=== PATIENT | male | born 1960 | race African-American/Black ===

== ENCOUNTER 2017-07-04 06:35 | Inpatient (IN) | payer OTHER ==
[~2017-07-04] VITALS: Ht 160 cm; Wt 91.2 kg
[2017-07-04] VITALS (7 sets, daily range): BP systolic 116–169; BP diastolic 62–96
--- NOTE | 2017-07-04 06:46 | Emergency Room Report ---
History of Present Illness General Chief Complaint: Chest Pain Source: Patient, EMS Present Illness HPI 56-year-old male with pmhx of HTN, CHF, end-stage renal disease on dialysis Friday last dialysis Friday p/w chest pain for one day. Chest pain started while at rest while trying to sleep. Localized to right chest , no radiation to back or other areas, sharp in nature, gradual in onset, lasted many hours throughout the entire night,. Reports SOB. Denies palpitations, diaphoresis, n/v. This is the first occurrence of chest pain. Denies fever, chills, cough, abd pain. Denies trauma. Patient has never had a stress test. Patient has never had a cardiac catheterization. Denies smoking, no family history of cardiac disease at a young age. Patient states that he has chronic bilateral lower extremity edema, and recently it has been better than his usual. Allergies: Coded Allergies: No Known Allergies (Unverified , 07/04/17) Patient History Past Medical History: see triage record Past Surgical History: none Pertinent Family History: none Reviewed Nursing Documentation: PMH: Agreed, PSxH: Agreed Nursing Documentation-PMH Hx Hypertension: Yes - CHF Hx Dialysis: Yes - MWF Review of Systems All Other Systems: negative except mentioned in HPI Physical Exam Vital Signs Date Time Temp Pulse Resp B/P (MAP) Pulse Ox O2 Delivery O2 Flow Rate FiO2 07/04/17 06:26 97.3 85 18 147/88 96 Room Air Sp02 EP Interpretation: normal, abnormal - Satting 91% on room air up to 99% on 2 L nasal cannula General Appearance: alert, GCS 15, non-toxic, other - Appears slightly short of breath however speaking in complete sentences Head: normocephalic, atraumatic Eyes: bilateral eye normal inspection, bilateral eye PERRL, bilateral eye EOMI ENT: normal ENT inspection, normal pharynx, normal voice, moist mucus membranes Neck: normal inspection, full range of motion, supple Respiratory: no retraction, no wheezing, speaking full sentences, other - Decreased breath sounds bilateral lung bases, chest symmetrical Cardiovascular #1: regular rate, rhythm, normal capillary refill, other - Right chest with dialysis Port-A-Cath, edema Cardiovascular #2: 2+ radial (R), 2+ radial (L) Gastrointestinal: normal inspection, non tender, soft, non-distended, no guarding Genitourinary: no CVA tenderness Musculoskeletal: normal inspection, back normal, normal range of motion, non- tender Neurologic: normal inspection, alert, oriented x3, responsive, motor strength/ tone normal, sensory intact, normal gait, speech normal Psychiatric: normal inspection, judgement/insight normal, memory normal Skin: normal inspection, normal color, no rash, warm/dry, well hydrated, normal turgor Medical Decision Making Diagnostic Impression: Primary Impression: Acute coronary syndrome Additional Impressions: CHF exacerbation ESRD (end stage renal disease) Hypoxia ER Course 56-year-old male with end-stage renal disease hypertension presenting with chest pain since last night DDX: ACS vs. CHF exacerbation vs. pneumonia vs. gastritis/GERD vs. pneumothorax PE on differential however at this time there are other more likely diagnoses. Plan: IV access, obtain labs including troponin, EKG, CXR ASA already given by EMS 325 mg, pain control with nitro / morphine as needed Anticipate admission Consider diuresis ER course: Patient hypoxic on room air 90 given 2 L nasal cannula Patient has remained on a monitor, HD stable Disposition: Patient requires admission for chest pain/ chf exacberation, [facility] Due to patient's history and comorbidities, patient has increased risk of acute cardiac event. Patient requires admission for further workup, serial troponin, and possible stress test/cath inpatient. D/W hospitalist Patient was signed out to Dr Patel, who has accepted patient for admission. Dr Elizondo contacted from renal who is aware of patient and will dialyze once patient is upstairs. Please note that this Emergency Department Report was dictated using [employer] supervisor technology software, occasionally this can lead to erroneous entry secondary to interpretation by the dictation equipment. EKG Diagnostic Results EP Interpretation: Yes Rate: normal Rhythm: NSR ST Segments: Mildly peaked T waves, Q waves noted in aVL, T wave inversion in aVL ASA given to patient: Yes Rhythm Strip EP Interpretation: Yes Rate: 70 Rhythm: NSR, no PVCs, no ectopy Chest X-ray CXR: Ordered: Yes 1 view Indication: Chest pain EP interpretation: Yes Interpretation: pulm vasc congestion/fluid overload Impression: pulm vasc congestion / CHF Electronically signed by Pedro Pablo Vergara MD Laboratory Tests Test 07/04/17 06:40 White Blood Count 16.5 K/UL (4.8-10.8) H Red Blood Count 3.37 M/UL (4.70-6.10) L Hemoglobin 10.1 G/DL (14.2-18.0) L Hematocrit 31.5 % (42.0-52.0) L Mean Corpuscular Volume 94 FL (80-99) Mean Corpuscular Hemoglobin 30.0 PG (27.0-31.0) Mean Corpuscular Hemoglobin Concent 32.0 G/DL (32.0-36.0) Red Cell Distribution Width 14.6 % (11.6-14.8) Platelet Count 291 K/UL (150-450) Mean Platelet Volume 5.2 FL (6.5-10.1) L Neutrophils (%) (Auto) 83.2 % (45.0-75.0) H Lymphocytes (%) (Auto) 9.1 % (20.0-45.0) L Monocytes (%) (Auto) 5.9 % (1.0-10.0) Eosinophils (%) (Auto) 1.2 % (0.0-3.0) Basophils (%) (Auto) 0.7 % (0.0-2.0) Sodium Level 138 MMOL/L (136-145) Potassium Level 4.5 MMOL/L (3.5-5.1) Chloride Level 101 MMOL/L (98-107) Carbon Dioxide Level 26 MMOL/L (21-32) Anion Gap 11 mmol/L (5-15) Blood Urea Nitrogen 71 mg/dL (7-18) H Creatinine 6.5 MG/DL (0.55-1.30) H Estimate Glomerular Filtration Rate 10.8 mL/min (>60) Glucose Level 111 MG/DL (74-106) H Calcium Level 9.4 MG/DL (8.5-10.1) Total Bilirubin 0.5 MG/DL (0.2-1.0) Aspartate Amino Transferase (AST) 15 U/L (15-37) Alanine Aminotransferase (ALT) 20 U/L (12-78) Alkaline Phosphatase 86 U/L (46-116) Total Creatine Kinase 81 U/L (26-308) Creatine Kinase MB 0.8 NG/ML (0.0-3.6) Creatine Kinase MB Relative Index 0.9 Troponin I 0.593 ng/mL (0.000-0.056) Pro-B-Type Natriuretic Peptide 1451 pg/mL (0-125) H Total Protein 7.5 G/DL (6.4-8.2) Albumin 3.5 G/DL (3.4-5.0) Globulin 4.0 g/dL Albumin/Globulin Ratio 0.9 (1.0-2.7) L Last Vital Signs Date Time Temp Pulse Resp B/P (MAP) Pulse Ox O2 Delivery O2 Flow Rate FiO2 07/04/17 06:26 97.3 85 18 147/88 96 Room Air Disposition: ADMITTED INPATIENT Condition: Serious Pedro Pablo Vergara M.D. Jul 04, 2017 06:46
[2017-07-04 06:57] LABS: BASOPHILS % (AUTO) 0.7 % (0.0-2.0); EOSINOPHILS % (AUTO) 1.2 % (0.0-3.0); LYMPHOCYTES % (AUTO) 9.1 % (20.0-45.0); MEAN CORPUSCULAR VOLUME 94 FL (80-99); MEAN PLATELET VOLUME 5.2 FL (6.5-10.1); MONOCYTES % (AUTO) 5.9 % (1.0-10.0); NEUTROPHILS % (AUTO) 83.2 % (45.0-75.0); PLATELET COUNT 291 K/UL (150-450); RED BLOOD COUNT 3.37 M/UL (4.70-6.10); RED CELL DISTRIBUTION WIDTH 14.6 % (11.6-14.8); WHITE BLOOD COUNT 16.5 K/UL (4.8-10.8)
[2017-07-04 07:24] LABS: ALANINE AMINOTRANSFERASE 20 U/L (12-78); ALBUMIN/GLOBULIN RATIO 0.9 (1.0-2.7); ANION GAP 11 mmol/L (5-15); ASPARTATE AMINO TRANSFERASE 15 U/L (15-37); CALCIUM 9.4 MG/DL (8.5-10.1); CARBON DIOXIDE 26 MMOL/L (21-32); CHLORIDE 101 MMOL/L (98-107); CKMB 0.8 NG/ML (0.0-3.6); CREATININE 6.5 MG/DL (0.55-1.30); GLOMERULAR FILTRATION RATE 10.8 mL/min (>60); POTASSIUM 4.5 MMOL/L (3.5-5.1); SODIUM 138 MMOL/L (136-145); TOTAL PROTEIN 7.5 G/DL (6.4-8.2)
[2017-07-04] MEDS ORDERED: Nitroglycerin Subl 0.4mg tab SL PRN (07:30)
[2017-07-04] MEDS ORDERED: CLONIDINE HCL0.1 MG PO (08:02)
[2017-07-04] MEDS ORDERED: CARVEDILOL6.25 MG ORAL (08:02)
[2017-07-04] MEDS ORDERED: FUROSEMIDE40 MG ORAL (08:02)
[2017-07-04] MEDS ORDERED: CALCIUM ACETAT668 MG PO (08:02)
[2017-07-04] MEDS ORDERED: AMLODIPINE BESYL5 MG ORAL (08:02)
[2017-07-04] MEDS ORDERED: LISINOPRIL40 MG ORAL (08:02)
[2017-07-04] MEDS ORDERED: FERROUS SULFAT325 MG ORAL (08:02)
[2017-07-04 08:21] LABS: APPEARANCE,URINE CLEAR; KETONES,URINE NEGATIVE (NEGATIVE); LEUKOCYTE ESTERASE ,URINE NEGATIVE (NEGATIVE); NITRITE,URINE NEGATIVE (NEGATIVE); PH,URINE 6 (4.5-8.0); PROTEIN,URINE 4+ (NEGATIVE); UROBILINOGEN,URINE NORMAL MG/DL (0.0-1.0)
[2017-07-04 08:31] LABS: BACTERIA,URINE FEW /HPF; SQUAMOUS EPITHELIAL CELL,UR OCCASIONAL /LPF (NONE/OCC); WBC,URINE 0-2 /HPF (0 - 0)
[2017-07-04] MEDS ORDERED: Albuterol/Ipratropium 3ml neb HHN PRN (10:15)
[2017-07-04] MEDS ORDERED: Miralax 17gm pkt ORAL PRN (10:15)
--- NOTE | 2017-07-04 11:10 | History and Physical ---
History of Present Illness General Date patient seen: Jul 04, 2017 Reason for Hospitalization: Chest Pain Present Illness HPI 56-year-old male with pmhx of HTN, CHF, end-stage renal disease on dialysis brought in by paramedics with CC of chest pain for one day. Chest pain started while at rest while trying to sleep. Localized to right chest, no radiation to back or other areas, sharp in nature, gradual in onset, lasted many hours throughout the entire night,. Reports SOB. Denies palpitations, diaphoresis, n/ v. Denies fever, chills, cough, abd pain. Denies trauma. Initial evaluation showed that pt has pulmonary edema and leukocytosis. Pt is admitted to [facility] for further work up. HD is already arranged. Allergies: Coded Allergies: No Known Allergies (Unverified , 07/04/17) Medication History Scheduled Amlodipine Besylate* (Amlodipine Besylate*), 5 MG ORAL DAILY, (Reported) Carvedilol* (Carvedilol*), 6.25 MG ORAL EVERY 12 HOURS, (Reported) Ferrous Sulfate* (Ferrous Sulfate*), 325 MG ORAL DAILY, (Reported) Furosemide* (Lasix*), 40 MG ORAL DAILY, (Reported) Lisinopril* (Lisinopril*), 40 MG ORAL DAILY, (Reported) Miscellaneous Medications Calcium Acetate (Calcium Acetate), 668 MG PO, (Reported) Clonidine Hcl (Clonidine Hcl), 0.1 MG PO, (Reported) Patient History Healthcare decision maker Resuscitation status Advanced Directive on File Past Medical/Surgical History Past Medical/Surgical History: (1) ESRD (end stage renal disease) Review of Systems All Other Systems: negative except mentioned in HPI Physical Exam General Appearance: WD/WN Lines, tubes and drains: peripheral HEENT: normocephalic, anicteric Neck: non-tender, normal alignment Respiratory/Chest: chest wall non-tender, lungs clear Breasts: no masses Cardiovascular/Chest: normal peripheral pulses, regular rhythm Abdomen: normal bowel sounds Genitourinary/Rectal: normal genital exam Extremities: no calf tenderness Last 24 Hour Vital Signs Date Time Temp Pulse Resp B/P (MAP) Pulse Ox O2 Delivery O2 Flow Rate FiO2 07/04/17 10:25 99.2 74 20 158/90 99 Nasal Cannula 2.0 07/04/17 10:00 67 18 143/70 100 Room Air 2.0 07/04/17 08:47 75 20 116/62 100 Nasal Cannula 2.0 07/04/17 07:41 158/74 07/04/17 06:44 97.3 70 18 147/88 100 Nasal Cannula 2.0 07/04/17 06:44 85 18 Nasal Cannula 2.0 07/04/17 06:26 97.3 85 18 147/88 96 Room Air Laboratory Tests Test 07/04/17 06:40 07/04/17 08:05 White Blood Count 16.5 K/UL (4.8-10.8) H Red Blood Count 3.37 M/UL (4.70-6.10) L Hemoglobin 10.1 G/DL (14.2-18.0) L Hematocrit 31.5 % (42.0-52.0) L Mean Corpuscular Volume 94 FL (80-99) Mean Corpuscular Hemoglobin 30.0 PG (27.0-31.0) Mean Corpuscular Hemoglobin Concent 32.0 G/DL (32.0-36.0) Red Cell Distribution Width 14.6 % (11.6-14.8) Platelet Count 291 K/UL (150-450) Mean Platelet Volume 5.2 FL (6.5-10.1) L Neutrophils (%) (Auto) 83.2 % (45.0-75.0) H Lymphocytes (%) (Auto) 9.1 % (20.0-45.0) L Monocytes (%) (Auto) 5.9 % (1.0-10.0) Eosinophils (%) (Auto) 1.2 % (0.0-3.0) Basophils (%) (Auto) 0.7 % (0.0-2.0) Sodium Level 138 MMOL/L (136-145) Potassium Level 4.5 MMOL/L (3.5-5.1) Chloride Level 101 MMOL/L (98-107) Carbon Dioxide Level 26 MMOL/L (21-32) Anion Gap 11 mmol/L (5-15) Blood Urea Nitrogen 71 mg/dL (7-18) H Creatinine 6.5 MG/DL (0.55-1.30) H Estimat Glomerular Filtration Rate 10.8 mL/min (>60) Glucose Level 111 MG/DL (74-106) H Calcium Level 9.4 MG/DL (8.5-10.1) Total Bilirubin 0.5 MG/DL (0.2-1.0) Aspartate Amino Transf (AST/SGOT) 15 U/L (15-37) Alanine Aminotransferase (ALT/SGPT) 20 U/L (12-78) Alkaline Phosphatase 86 U/L (46-116) Total Creatine Kinase 81 U/L (26-308) Creatine Kinase MB 0.8 NG/ML (0.0-3.6) Creatine Kinase MB Relative Index 0.9 Troponin I 0.593 ng/mL (0.000-0.056) Pro-B-Type Natriuretic Peptide 1451 pg/mL (0-125) H Total Protein 7.5 G/DL (6.4-8.2) Albumin 3.5 G/DL (3.4-5.0) Globulin 4.0 g/dL Albumin/Globulin Ratio 0.9 (1.0-2.7) L Urine Color Pale yellow Urine Appearance Clear Urine pH 6 (4.5-8.0) Urine Specific [place] 1.015 (1.005-1.035) Urine Protein 4+ (NEGATIVE) H Urine Glucose (UA) Negative (NEGATIVE) Urine Ketones Negative (NEGATIVE) Urine Occult Blood 1+ (NEGATIVE) H Urine Nitrite Negative (NEGATIVE) Urine Bilirubin Negative (NEGATIVE) Urine Urobilinogen Normal MG/DL (0.0-1.0) Urine Leukocyte Esterase Negative (NEGATIVE) Urine RBC 2-4 /HPF (0 - 0) H Urine WBC 0-2 /HPF (0 - 0) Urine Squamous Epithelial Cells Occasional /LPF Urine Bacteria Few /HPF (NONE) Height (Feet): 5 Height (Inches): 3.00 Weight (Pounds): 160 Medications Current Medications Medications (Trade) Dose Ordered Sig/Meagan Route PRN Reason Start Time Stop Time Status Last Admin Dose Admin Acetaminophen (Tylenol) 650 mg Q4H PRN ORAL Fever 07/04/17 10:15 08/03/17 10:14 UNV Albuterol/ Ipratropium (DuoNeb 0.5-3(2.5)mg/3ml) 3 ml EVERY 4 HOURS PRN HHN Shortness of Breath 07/04/17 10:15 07/09/17 10:14 UNV Amlodipine Besylate (Norvasc) 5 mg DAILY ORAL 07/05/17 09:00 08/04/17 08:59 UNV Carvedilol (Coreg) 6.25 mg EVERY 12 HOURS ORAL 07/04/17 21:00 08/03/17 20:59 UNV Clonidine HCl (Catapres) 0.1 mg EVERY 6 HOURS PRN ORAL sbp more than 160 07/04/17 10:15 08/03/17 10:14 UNV Dextrose (Dextrose 50%) STAT PRN IV Hypoglycemia 07/04/17 10:15 08/03/17 10:14 UNV Heparin Sodium (Porcine) (Heparin 5000 units/ml) 5,000 units EVERY 12 HOURS SUBQ 07/04/17 21:00 08/03/17 20:59 UNV Lisinopril (Prinivil) 40 mg DAILY ORAL 07/05/17 09:00 08/04/17 08:59 UNV Nitroglycerin (Ntg) 0.4 mg Q5M PRN SL Prn Chest Pain 07/04/17 07:30 08/03/17 07:29 07/04/17 07:41 Ondansetron HCl (Zofran) 4 mg Q6H PRN IVP Nausea & Vomiting 07/04/17 10:15 08/03/17 10:14 UNV Ondansetron HCl (Zofran) 4 mg Q6H PRN IVP Nausea & Vomiting 07/04/17 10:15 08/03/17 10:14 UNV Pneumococcal Polyvalent Vaccine (Pneumovax) 0.5 ml ONCE ONCE IM 07/04/17 11:00 07/04/17 11:01 UNV Polyethylene Glycol (Miralax) 17 gm DAILYPRN PRN ORAL Constipation 07/04/17 10:15 08/03/17 10:14 UNV Temazepam (Restoril) 15 mg HSPRN PRN ORAL Insomnia 07/04/17 10:15 07/11/17 10:14 UNV Assessment/Plan Problem List: (1) Respiratory failure, acute ICD Codes: J96.00 - Acute respiratory failure, unspecified whether with hypoxia or hypercapnia SNOMED: 51459107 (2) Acute coronary syndrome ICD Codes: I24.9 - Acute ischemic heart disease, unspecified SNOMED: 297064194 (3) ESRD (end stage renal disease) ICD Codes: N18.6 - End stage renal disease SNOMED: 97771916, 56983476 (4) Leukocytosis ICD Codes: D72.829 - Elevated white blood cell count, unspecified SNOMED: 764325535, 675654286 Assessment/Plan HD serial ekg cardiac work up blood cultures f/u wbc empiric vanco dvt prophylaxis TO TINSLEY Jul 04, 2017 11:10
--- NOTE | 2017-07-04 11:45 | Diagnostic Imaging Report ---
Indication: PAIN Technique: One view of the chest Comparison: none Findings: There are bilateral pleural effusions, left greater than right. There is retrocardiac consolidation. There is mild generalized interstitial congestion. Right jugular tunneled dialysis catheter is noted. Heart is enlarged. Impression: Bilateral left greater than right pleural effusions. Retrocardiac consolidation, mild generalized interstitial congestion Cardiomegaly Dialysis catheter
[2017-07-04] MEDS: Norco 5mg/325mg tab ORAL PRN ×2 (13:38→20:59)
--- NOTE | 2017-07-04 14:05 | Consultation ---
Consult Note Consult Note [id number] OZZIE CA M.D. Jul 04, 2017 14:05
--- NOTE | 2017-07-04 14:56 | Cardiology Report ---
APPROVED REPORT EXAM: Two-dimensional and M-mode echocardiogram with Doppler and color Doppler. INDICATION Left Ventricular Function M-Mode DIMENSIONS IVSd2.2 (0.7-1.1cm)Left Atrium (MM)3.7 (1.6-4.0cm) LVDd3.6 (3.5-5.6cm)Aortic Root3.0 (2.0-3.7cm) PWd1.1 (0.7-1.1cm)Aortic Cusp Exc.2.0 (1.5-2.0cm) LVDs2.6 (2.5-4.0cm) PWs4.2 cm Normal left ventricular chamber size. Global left ventricular hypokinesis. Left ventricular ejection fraction estimated to be 50 %. Mild left ventricular hypertrophy. Anterior Echo-free space, may be due to pericardial fat or effusion. All other cardiac chamber sizes are within normal limits. Mild focal aortic valve sclerosis with adequate cusp excursion. Mildly thickened mitral valve leaflets with normal excursion. Mild mitral annulus and aortic root calcification. Normal pulmonic valve structure. Normal tricuspid valve structure. IVC dilated at 1.8 cm with physiologic collapse. A color flow and spectral Doppler study was performed and revealed: No aortic regurgitation. Trace mitral regurgitation. reduced left ventricular relaxation. Trace tricuspid regurgitation. Tricuspid systolic velocities suggests peak right ventricular systolic pressure of 18 mmHg. No pulmonic regurgitation present.
[2017-07-04] MEDS ORDERED: Pneumococcal Vaccine 25mcg/0.5ml IM ONE (15:30)
--- NOTE | 2017-07-04 16:30 | Consultation ---
Consult Note Consult Note asked to eval for dialysis management 56-year-old male with pmhx of HTN, CHF, end-stage renal disease on dialysis Friday last dialysis Friday p/w chest pain for one day. Chest pain started while at rest while trying to sleep. Localized to right chest , no radiation to back or other areas, sharp in nature, gradual in onset, lasted many hours throughout the entire night,. Reports SOB. Denies palpitations, diaphoresis, n/v. This is the first occurrence of chest pain. Denies fever, chills, cough, abd pain. Denies trauma. Patient has never had a stress test. Patient has never had a cardiac catheterization. Denies smoking, no family history of cardiac disease at a young age. Patient states that he has chronic bilateral lower extremity edema, and recently it has been better than his usual. Hx Hypertension: Yes - CHF Hx Dialysis: Yes - MWF [facility] poor historian- New with HD has right chest permacath Assessment/Plan Primary Impression: Acute coronary syndrome Additional Impressions: CHF exacerbation ESRD (end stage renal disease) Hypoxia Plan: HD and UF agustín keep BP in check per cardiology FREDDIE GARCIA Jul 04, 2017 16:30
[2017-07-04] MEDS: Carvedilol 6.25mg Tab ORAL SCH (21:00)
[2017-07-04] MEDS: Heparin 5000 units/ml inj SUBQ SCH (21:05)
[2017-07-05] VITALS: BP 112/54
[2017-07-05] MEDS ORDERED: Vancomycin 1250mg/D5W 250ml IVPB ONE (02:00)
--- NOTE | 2017-07-05 02:00 | Consultation ---
DATE OF CONSULTATION: 07/05/2017 INFECTIOUS DISEASES CONSULTATION CONSULTING PHYSICIAN: Richar Prado M.D REQUESTING PHYSICIAN: Mario Patel M.D. REASON FOR CONSULTATION: Evaluation of the patient for sepsis and antibiotic management. HISTORY OF PRESENT ILLNESS: The patient is a 56-year-old male with multiple medical problems, who was admitted to this medical center due to chest pain mostly and also back pain radiation into the chest. The patient was found to have leukocytosis. Infectious Disease consultation has been requested for further evaluation of the patient and antibiotic management. PAST MEDICAL HISTORY: 1. Hypertension. 2. Congestive heart failure. 3. End-stage renal disease, on hemodialysis. 4. Status post PermCath catheter placement recently. MEDICATIONS: The patient is currently off of antibiotics. ALLERGIES: No known drug allergies. SOCIAL HISTORY: The patient lives at home. FAMILY HISTORY: Noncontributory. REVIEW OF SYSTEMS: HEENT: No recent change in vision or hearing. PULMONARY: No cough or shortness of breath. CARDIOVASCULAR: As mentioned above. ABDOMEN: No nausea or vomiting. GENITOURINARY: No dysuria. The patient has some urine output. NEUROLOGIC: No altered level of consciousness. PHYSICAL EXAMINATION: VITAL SIGNS: Pulse 86, respiratory rate 18, and temperature 99.3. HEENT: No pale conjunctivae. No icterus. NECK: No lymphadenopathy. CHEST: Clear. HEART: S1 and S2. ABDOMEN: Soft. SKIN: No rash. NEUROLOGIC: Awake and alert. LABORATORY AND DIAGNOSTIC DATA: White blood cells 19, hemoglobin 10, and platelets 291. UA shows 2 to 4 red blood cells and 0 white blood cells. BUN 71 and creatinine 6.5. ALT, AST, and alkaline phosphatase are unremarkable. Chest x-ray, bilateral effusion, possible retrocardiac consolidation. 2D echo, no evidence of vegetation. Ejection fraction is 50%. ASSESSMENT: 1. Leukocytosis. 2. Rule out bacteremia. 3. Possible pneumonia. 4. Pleural effusion/pleuritis, maybe cause of patient's chest pain. PLAN: 1. We will start the patient on Levaquin and IV vancomycin. 2. Monitor CBC. 3. Monitor BMP. 4. Monitor cultures (blood, sputum, and urine). 5. Monitor chest x-ray. 6. Monitor the patient's CBC and BMP. 7. Based on patient's clinical course and labs, we will do further recommendation. Thank you, Dr. Patel, for allowing me to participate in the care of this patient. I will follow the patient with you during this hospitalization. Richar Prado M.D. DR: YEFRI JOB#: [id number] CC:
[2017-07-05] MEDS: Norco 5mg/325mg tab ORAL PRN ×3 (02:59→20:27)
[2017-07-05 05:36] LABS: BASOPHILS % (AUTO) 0.5 % (0.0-2.0); EOSINOPHILS % (AUTO) 2.3 % (0.0-3.0); LYMPHOCYTES % (AUTO) 8.5 % (20.0-45.0); MEAN CORPUSCULAR HEMOGLOBIN 30.2 PG (27.0-31.0); MEAN CORPUSCULAR HGB CONC 31.9 G/DL (32.0-36.0); MEAN CORPUSCULAR VOLUME 95 FL (80-99); MEAN PLATELET VOLUME 6.1 FL (6.5-10.1); MONOCYTES % (AUTO) 8.2 % (1.0-10.0); NEUTROPHILS % (AUTO) 80.5 % (45.0-75.0); PLATELET COUNT 304 K/UL (150-450); RED BLOOD COUNT 3.53 M/UL (4.70-6.10); RED CELL DISTRIBUTION WIDTH 14.6 % (11.6-14.8); WHITE BLOOD COUNT 13.9 K/UL (4.8-10.8)
[2017-07-05 05:54] LABS: ALANINE AMINOTRANSFERASE 19 U/L (12-78); ALBUMIN/GLOBULIN RATIO 0.7 (1.0-2.7); ANION GAP 7 mmol/L (5-15); ASPARTATE AMINO TRANSFERASE 14 U/L (15-37); CALCIUM 9.3 MG/DL (8.5-10.1); CARBON DIOXIDE 34 MMOL/L (21-32); CHLORIDE 96 MMOL/L (98-107); CHOLESTEROL 116 MG/DL (< 200); CHOLESTEROL/HDL RATIO 1.6 (3.3-4.4); CREATININE 5.3 MG/DL (0.55-1.30); GLOMERULAR FILTRATION RATE 13.7 mL/min (>60); PHOSPHORUS 4.4 MG/DL (2.5-4.9); POTASSIUM 3.9 MMOL/L (3.5-5.1); SODIUM 137 MMOL/L (136-145); THYROID STIMULATING HORMONE 0.882 uiU/mL (0.360-3.740); TOTAL PROTEIN 7.7 G/DL (6.4-8.2); URIC ACID 4.2 MG/DL (2.6-7.2)
[2017-07-05 06:43] LABS: HEMOGLOBIN A1C 6.7 % (4.3-6.0)
[2017-07-05 08:00] VITALS: BP 133/69
[2017-07-05] MEDS: Lisinopril 20mg tab ORAL SCH (08:39)
[2017-07-05] MEDS: Carvedilol 6.25mg Tab ORAL SCH ×2 (08:40→20:24)
[2017-07-05] MEDS: Heparin 5000 units/ml inj SUBQ SCH ×2 (08:43→20:29)
[2017-07-05] MEDS ORDERED: Tubing IV Secondary IV ONE (09:31)
[2017-07-05] MEDS ORDERED: NS 275ml ONE (09:31)
[2017-07-05 09:50] LABS: CRP QUANT > 70.0 mg/dL (0.00-0.90)
--- NOTE | 2017-07-05 10:12 | Infectious Diseases Prog Note ---
Assessment/Plan Assessment/Plan A; Pneumonia Pleural effusion Leukocytosis ACS ESRD on HD Diastolic CHF P: Continue Levaquin & Vancomycin Subjective ROS Limited/Unobtainable: No Constitutional: Reports: fatigue Respiratory: Reports: productive cough Cardiovascular: Reports: no symptoms Gastrointestinal/Abdominal: Reports: no symptoms Musculoskeletal: Reports: other - soareness Allergies: Coded Allergies: No Known Allergies (Unverified , 07/04/17) Objective Vital Signs Last 24 Hour Vital Signs Date Time Temp Pulse Resp B/P (MAP) Pulse Ox O2 Delivery O2 Flow Rate FiO2 07/05/17 08:40 66 133/69 07/05/17 08:39 66 133/69 07/05/17 08:39 133/69 07/05/17 08:00 98.9 66 20 133/69 100 Room Air 07/05/17 06:30 75 20 Nasal Cannula 3.0 32 07/05/17 06:30 Nasal Cannula 3.0 32 07/05/17 04:01 84 07/05/17 04:00 Room Air 07/05/17 00:00 70 07/05/17 00:00 98.3 70 18 112/54 100 Room Air 07/04/17 21:00 75 139/96 07/04/17 21:00 75 139/96 07/04/17 20:00 84 07/04/17 20:00 98.2 76 20 145/85 97 Room Air 07/04/17 19:20 Nasal Cannula 2.0 07/04/17 18:35 73 20 Nasal Cannula 3.0 32 07/04/17 18:35 Nasal Cannula 3.0 32 07/04/17 16:10 Nasal Cannula 2.0 07/04/17 16:00 75 07/04/17 16:00 99.3 72 21 139/96 99 Room Air 07/04/17 15:42 72 07/04/17 12:23 172/96 07/04/17 12:00 98.4 73 22 169/92 98 Room Air 07/04/17 10:34 76 07/04/17 10:25 99.2 74 20 158/90 99 Nasal Cannula 2.0 07/04/17 10:12 97.3 67 18 143/70 100 Room Air 2.0 Height (Feet): 5 Height (Inches): 3.00 Weight (Pounds): 196 General Appearance: no acute distress HEENT: mucous membranes moist Respiratory/Chest: lungs clear Cardiovascular: normal rate, other - right Permacath Abdomen: soft, non tender Extremities: no edema Neurologic/Psychiatric: alert, oriented x 3, responsive Laboratory Tests Test 07/05/17 03:25 White Blood Count 13.9 K/UL (4.8-10.8) H Red Blood Count 3.53 M/UL (4.70-6.10) L Hemoglobin 10.7 G/DL (14.2-18.0) L Hematocrit 33.5 % (42.0-52.0) L Mean Corpuscular Volume 95 FL (80-99) Mean Corpuscular Hemoglobin 30.2 PG (27.0-31.0) Mean Corpuscular Hemoglobin Concent 31.9 G/DL (32.0-36.0) L Red Cell Distribution Width 14.6 % (11.6-14.8) Platelet Count 304 K/UL (150-450) Mean Platelet Volume 6.1 FL (6.5-10.1) L Neutrophils (%) (Auto) 80.5 % (45.0-75.0) H Lymphocytes (%) (Auto) 8.5 % (20.0-45.0) L Monocytes (%) (Auto) 8.2 % (1.0-10.0) Eosinophils (%) (Auto) 2.3 % (0.0-3.0) Basophils (%) (Auto) 0.5 % (0.0-2.0) Sodium Level 137 MMOL/L (136-145) Potassium Level 3.9 MMOL/L (3.5-5.1) Chloride Level 96 MMOL/L (98-107) L Carbon Dioxide Level 34 MMOL/L (21-32) H Anion Gap 7 mmol/L (5-15) Blood Urea Nitrogen 46 mg/dL (7-18) H Creatinine 5.3 MG/DL (0.55-1.30) H Estimat Glomerular Filtration Rate 13.7 mL/min (>60) Glucose Level 103 MG/DL (74-106) Hemoglobin A1c 6.7 % (4.3-6.0) H Uric Acid 4.2 MG/DL (2.6-7.2) Calcium Level 9.3 MG/DL (8.5-10.1) Phosphorus Level 4.4 MG/DL (2.5-4.9) Magnesium Level 2.0 MG/DL (1.8-2.4) Total Bilirubin 0.5 MG/DL (0.2-1.0) Gamma Glutamyl Transpeptidase 23 U/L (5-85) Aspartate Amino Transf (AST/SGOT) 14 U/L (15-37) L Alanine Aminotransferase (ALT/SGPT) 19 U/L (12-78) Alkaline Phosphatase 82 U/L (46-116) Total Creatine Kinase 55 U/L (26-308) C-Reactive Protein, Quantitative > 70.0 mg/dL (0.00-0.90) H Pro-B-Type Natriuretic Peptide 1721 pg/mL (0-125) H Total Protein 7.7 G/DL (6.4-8.2) Albumin 3.1 G/DL (3.4-5.0) L Globulin 4.6 g/dL Albumin/Globulin Ratio 0.7 (1.0-2.7) L Triglycerides Level 59 MG/DL (0-200) Cholesterol Level 116 MG/DL (< 200) LDL Cholesterol 32 mg/dL (<100) HDL Cholesterol 72 MG/DL (40-60) H Cholesterol/HDL Ratio 1.6 (3.3-4.4) L Vitamin B12 Level 1982 PG/ML (193-986) H Thyroid Stimulating Hormone (TSH) 0.882 uiU/mL (0.360-3.740) Current Medications Medications (Trade) Dose Ordered Sig/Meagan Route PRN Reason Start Time Stop Time Status Last Admin Dose Admin Acetaminophen (Tylenol) 650 mg Q4H PRN ORAL Fever 07/04/17 10:15 08/03/17 10:14 07/04/17 11:44 Acetaminophen/ Hydrocodone Bitart ([place] 5/325) 1 tab Q6H PRN ORAL For Pain 07/04/17 13:00 07/11/17 12:59 07/05/17 02:59 Albuterol/ Ipratropium (DuoNeb 0.5-3(2.5)mg/3ml) 3 ml Q4H PRN HHN Shortness of Breath 07/04/17 10:15 07/09/17 10:14 Amlodipine Besylate (Norvasc) 5 mg Q12HR ORAL 07/04/17 21:00 08/03/17 20:59 07/05/17 08:39 Carvedilol (Coreg) 6.25 mg EVERY 12 HOURS ORAL 07/04/17 21:00 08/03/17 20:59 07/05/17 08:40 Clonidine HCl (Catapres) 0.1 mg Q6H PRN ORAL sbp more than 160 07/04/17 10:15 08/03/17 10:14 07/04/17 12:23 Dextrose (Dextrose 50%) STAT PRN IV Hypoglycemia 07/04/17 10:15 08/03/17 10:14 Heparin Sodium (Porcine) (Heparin 5000 units/ml) 5,000 units EVERY 12 HOURS SUBQ 07/04/17 21:00 08/03/17 20:59 07/05/17 08:43 Levofloxacin 100 ml @ 100 mls/hr Q48H IVPB 07/05/17 01:00 07/12/17 00:59 07/05/17 02:05 Lisinopril (Prinivil) 40 mg DAILY ORAL 07/05/17 09:00 08/04/17 08:59 07/05/17 08:39 Nitroglycerin (Ntg) 0.4 mg Q5M PRN SL Prn Chest Pain 07/04/17 07:30 08/03/17 07:29 07/04/17 07:41 Ondansetron HCl (Zofran) 4 mg Q6H PRN IVP Nausea & Vomiting 07/04/17 10:15 08/03/17 10:14 Polyethylene Glycol (Miralax) 17 gm DAILYPRN PRN ORAL Constipation 07/04/17 10:15 08/03/17 10:14 Temazepam (Restoril) 15 mg HSPRN PRN ORAL Insomnia 07/04/17 10:15 07/11/17 10:14 07/04/17 21:00 Vancomycin HCl (Vanco rx to dose) 1 ea DAILY PRN MISC Per rx protocol 07/05/17 00:15 08/04/17 00:14 FRANCISCO AUGUSTE Jul 05, 2017 10:12
[2017-07-05 12:00] VITALS: BP 105/64
--- NOTE | 2017-07-05 12:38 | General Progress Note ---
Assessment/Plan Status: unchanged Status Narrative clinically improved Assessment/Plan Primary Impression: Acute coronary syndrome Additional Impressions: CHF exacerbation ESRD (end stage renal disease) Hypoxia Possible sepsis ( line ) or pneumonia Plan: HD and UF done 07/04 repeat 07/07 keep BP in check start ASA Stool softners Gastric support per cardiology Global left ventricular hypokinesis. Left ventricular ejection fraction estimated to be 50 %. Mild left ventricular hypertrophy. Subjective ROS Limited/Unobtainable: No Constitutional: Reports: malaise, weakness Allergies: Coded Allergies: No Known Allergies (Unverified , 07/04/17) Objective Last 24 Hour Vital Signs Date Time Temp Pulse Resp B/P (MAP) Pulse Ox O2 Delivery O2 Flow Rate FiO2 07/05/17 08:40 66 133/69 07/05/17 08:39 66 133/69 07/05/17 08:39 133/69 07/05/17 08:00 89 07/05/17 08:00 98.9 66 20 133/69 100 Room Air 07/05/17 06:30 75 20 Nasal Cannula 3.0 32 07/05/17 06:30 Nasal Cannula 3.0 32 07/05/17 04:01 84 07/05/17 04:00 Room Air 07/05/17 00:00 70 07/05/17 00:00 98.3 70 18 112/54 100 Room Air 07/04/17 21:00 75 139/96 07/04/17 21:00 75 139/96 07/04/17 20:00 84 07/04/17 20:00 98.2 76 20 145/85 97 Room Air 07/04/17 19:20 Nasal Cannula 2.0 07/04/17 18:35 73 20 Nasal Cannula 3.0 32 07/04/17 18:35 Nasal Cannula 3.0 32 07/04/17 16:10 Nasal Cannula 2.0 07/04/17 16:00 75 07/04/17 16:00 99.3 72 21 139/96 99 Room Air 07/04/17 15:42 72 Intake and Output 07/05/17 07/06/17 19:00 07:00 Intake Total 120 ml Balance 120 ml Intake Oral 120 ml # Voids 1 # Bowel Movements 1 Laboratory Tests 07/05/17 03:25: White Blood Count 13.9H, Red Blood Count 3.53L, Hemoglobin 10.7L, Hematocrit 33.5L, Mean Corpuscular Volume 95, Mean Corpuscular Hemoglobin 30.2, Mean Corpuscular Hemoglobin Concent 31.9L, Red Cell Distribution Width 14.6, Platelet Count 304, Mean Platelet Volume 6.1L, Neutrophils (%) (Auto) 80.5H, Lymphocytes (%) (Auto) 8.5L, Monocytes (%) (Auto) 8.2, Eosinophils (%) (Auto) 2.3, Basophils (%) (Auto) 0.5, Sodium Level 137, Potassium Level 3.9, Chloride Level 96L, Carbon Dioxide Level 34H, Anion Gap 7, Blood Urea Nitrogen 46H, Creatinine 5.3H, Estimat Glomerular Filtration Rate 13.7, Glucose Level 103, Hemoglobin A1c 6.7H, Uric Acid 4.2, Calcium Level 9.3, Phosphorus Level 4.4, Magnesium Level 2.0, Total Bilirubin 0.5, Gamma Glutamyl Transpeptidase 23, Aspartate Amino Transf (AST/SGOT) 14L, Alanine Aminotransferase (ALT/SGPT) 19, Alkaline Phosphatase 82, Total Creatine Kinase 55, C-Reactive Protein, Quantitative > 70.0H, Pro-B-Type Natriuretic Peptide 1721H, Total Protein 7.7, Albumin 3.1L, Globulin 4.6, Albumin/Globulin Ratio 0.7L, Triglycerides Level 59 , Cholesterol Level 116, LDL Cholesterol 32, HDL Cholesterol 72H, Cholesterol/ HDL Ratio 1.6L, Vitamin B12 Level 1982H, Thyroid Stimulating Hormone (TSH) 0.882 Height (Feet): 5 Height (Inches): 3.00 Weight (Pounds): 196 General Appearance: no apparent distress Cardiovascular: normal rate Respiratory/Chest: decreased breath sounds Abdomen: soft Objective other PE not changed FREDDIE GARCIA Jul 05, 2017 12:38
--- NOTE | 2017-07-05 12:45 | Pulmonology Progress Note ---
Assessment/Plan Problems: (1) Respiratory failure, acute (2) Acute coronary syndrome (3) ESRD (end stage renal disease) (4) Leukocytosis Assessment/Plan feeling better f/u wbc abx as per ID check labs echo reviewed Subjective ROS Limited/Unobtainable: No Constitutional: Reports: no symptoms HEENT: Repors: no symptoms Respiratory: Reports: no symptoms Allergies: Coded Allergies: No Known Allergies (Unverified , 07/04/17) Objective Last 24 Hour Vital Signs Date Time Temp Pulse Resp B/P (MAP) Pulse Ox O2 Delivery O2 Flow Rate FiO2 07/05/17 08:40 66 133/69 07/05/17 08:39 66 133/69 07/05/17 08:39 133/69 07/05/17 08:00 89 07/05/17 08:00 98.9 66 20 133/69 100 Room Air 07/05/17 06:30 75 20 Nasal Cannula 3.0 32 07/05/17 06:30 Nasal Cannula 3.0 32 07/05/17 04:01 84 07/05/17 04:00 Room Air 07/05/17 00:00 70 07/05/17 00:00 98.3 70 18 112/54 100 Room Air 07/04/17 21:00 75 139/96 07/04/17 21:00 75 139/96 07/04/17 20:00 84 07/04/17 20:00 98.2 76 20 145/85 97 Room Air 07/04/17 19:20 Nasal Cannula 2.0 07/04/17 18:35 73 20 Nasal Cannula 3.0 32 07/04/17 18:35 Nasal Cannula 3.0 32 07/04/17 16:10 Nasal Cannula 2.0 07/04/17 16:00 75 07/04/17 16:00 99.3 72 21 139/96 99 Room Air 07/04/17 15:42 72 Intake and Output 07/05/17 07/06/17 19:00 07:00 Intake Total 120 ml Balance 120 ml Intake Oral 120 ml # Voids 1 # Bowel Movements 1 General Appearance: WD/WN HEENT: normocephalic, anicteric Respiratory/Chest: chest wall non-tender, lungs clear Cardiovascular: normal peripheral pulses, regular rhythm Genitourinary: normal external genitalia Extremities: no cyanosis Skin: no ulcers Laboratory Tests 07/05/17 03:25: White Blood Count 13.9H, Red Blood Count 3.53L, Hemoglobin 10.7L, Hematocrit 33.5L, Mean Corpuscular Volume 95, Mean Corpuscular Hemoglobin 30.2, Mean Corpuscular Hemoglobin Concent 31.9L, Red Cell Distribution Width 14.6, Platelet Count 304, Mean Platelet Volume 6.1L, Neutrophils (%) (Auto) 80.5H, Lymphocytes (%) (Auto) 8.5L, Monocytes (%) (Auto) 8.2, Eosinophils (%) (Auto) 2.3, Basophils (%) (Auto) 0.5, Sodium Level 137, Potassium Level 3.9, Chloride Level 96L, Carbon Dioxide Level 34H, Anion Gap 7, Blood Urea Nitrogen 46H, Creatinine 5.3H, Estimat Glomerular Filtration Rate 13.7, Glucose Level 103, Hemoglobin A1c 6.7H, Uric Acid 4.2, Calcium Level 9.3, Phosphorus Level 4.4, Magnesium Level 2.0, Total Bilirubin 0.5, Gamma Glutamyl Transpeptidase 23, Aspartate Amino Transf (AST/SGOT) 14L, Alanine Aminotransferase (ALT/SGPT) 19, Alkaline Phosphatase 82, Total Creatine Kinase 55, C-Reactive Protein, Quantitative > 70.0H, Pro-B-Type Natriuretic Peptide 1721H, Total Protein 7.7, Albumin 3.1L, Globulin 4.6, Albumin/Globulin Ratio 0.7L, Triglycerides Level 59 , Cholesterol Level 116, LDL Cholesterol 32, HDL Cholesterol 72H, Cholesterol/ HDL Ratio 1.6L, Vitamin B12 Level 1982H, Thyroid Stimulating Hormone (TSH) 0.882 Current Medications Medications (Trade) Dose Ordered Sig/Meagan Route PRN Reason Start Time Stop Time Status Last Admin Dose Admin Acetaminophen (Tylenol) 650 mg Q4H PRN ORAL Fever 07/04/17 10:15 08/03/17 10:14 07/04/17 11:44 Acetaminophen/ Hydrocodone Bitart ([place] 5/325) 1 tab Q6H PRN ORAL For Pain 07/04/17 13:00 07/11/17 12:59 07/05/17 02:59 Albuterol/ Ipratropium (DuoNeb 0.5-3(2.5)mg/3ml) 3 ml Q4H PRN HHN Shortness of Breath 07/04/17 10:15 07/09/17 10:14 Amlodipine Besylate (Norvasc) 5 mg Q12HR ORAL 07/04/17 21:00 08/03/17 20:59 07/05/17 08:39 Aspirin (ASA) 325 mg DAILY ORAL 07/05/17 12:45 08/04/17 12:44 UNV Carvedilol (Coreg) 6.25 mg EVERY 12 HOURS ORAL 07/04/17 21:00 08/03/17 20:59 07/05/17 08:40 Clonidine HCl (Catapres) 0.1 mg Q6H PRN ORAL sbp more than 160 07/04/17 10:15 08/03/17 10:14 07/04/17 12:23 Dextrose (Dextrose 50%) STAT PRN IV Hypoglycemia 07/04/17 10:15 08/03/17 10:14 Docusate Sodium (Colace) 100 mg TWICE A DAY ORAL 07/05/17 13:30 08/04/17 13:29 Heparin Sodium (Porcine) (Heparin 5000 units/ml) 5,000 units EVERY 12 HOURS SUBQ 07/04/17 21:00 08/03/17 20:59 07/05/17 08:43 Levofloxacin 100 ml @ 100 mls/hr Q48H IVPB 07/05/17 01:00 07/12/17 00:59 07/05/17 02:05 Lisinopril (Prinivil) 40 mg DAILY ORAL 07/05/17 09:00 08/04/17 08:59 07/05/17 08:39 Nitroglycerin (Ntg) 0.4 mg Q5M PRN SL Prn Chest Pain 07/04/17 07:30 08/03/17 07:29 07/04/17 07:41 Ondansetron HCl (Zofran) 4 mg Q6H PRN IVP Nausea & Vomiting 07/04/17 10:15 08/03/17 10:14 Pantoprazole (Protonix) 40 mg ACBREAKFAST ORAL 07/05/17 13:30 08/04/17 13:29 Polyethylene Glycol (Miralax) 17 gm DAILYPRN PRN ORAL Constipation 07/04/17 10:15 08/03/17 10:14 Temazepam (Restoril) 15 mg HSPRN PRN ORAL Insomnia 07/04/17 10:15 07/11/17 10:14 07/04/17 21:00 Vancomycin HCl (Vanco rx to dose) 1 ea DAILY PRN MISC Per rx protocol 07/05/17 00:15 08/04/17 00:14 TO TINSLEY Jul 05, 2017 12:44
[2017-07-05 13:41] LABS: FERRITIN 107 NG/ML (8-388)
[2017-07-05 13:43] LABS: FOLIC ACID 5.4 NG/ML (3.1-17.5); IRON 18 ug/dL (50-175); TOTAL IRON BINDING CAPACITY 258 ug/dL (250-450)
[2017-07-05] MEDS: Docusate 100mg cap ORAL SCH ×2 (14:53→18:34)
[2017-07-05 16:00] VITALS: BP 132/74
[2017-07-05 20:00] VITALS: BP 141/68
[2017-07-06] VITALS (7 sets, daily range): BP systolic 117–185; BP diastolic 62–77
[2017-07-06] MEDS: Norco 5mg/325mg tab ORAL PRN ×4 (03:11→21:38)
--- NOTE | 2017-07-06 08:44 | Infectious Diseases Prog Note ---
Assessment/Plan Assessment/Plan A; Pneumonia Pleural effusion Leukocytosis ACS ESRD on HD Diastolic CHF P: Continue Levaquin & Vancomycin Subjective ROS Limited/Unobtainable: Yes Allergies: Coded Allergies: No Known Allergies (Unverified , 07/04/17) Objective Vital Signs Last 24 Hour Vital Signs Date Time Temp Pulse Resp B/P (MAP) Pulse Ox O2 Delivery O2 Flow Rate FiO2 07/06/17 08:00 98.3 64 21 123/64 97 Nasal Cannula 3.0 07/06/17 07:17 Nasal Cannula 3.0 32 07/06/17 07:17 89 20 Nasal Cannula 3.0 32 07/06/17 05:00 98.4 68 20 119/62 94 Nasal Cannula 3.0 07/06/17 04:11 59 07/06/17 00:18 97.7 73 20 147/65 94 Nasal Cannula 3.0 07/05/17 23:48 63 07/05/17 21:02 Nasal Cannula 3.0 32 07/05/17 21:02 66 20 Nasal Cannula 3.0 32 07/05/17 20:24 64 141/68 07/05/17 20:24 64 141/68 07/05/17 20:00 99.4 64 20 141/68 96 Nasal Cannula 20.0 07/05/17 19:11 65 07/05/17 16:00 98.5 74 20 132/74 96 Nasal Cannula 2.0 07/05/17 16:00 71 07/05/17 12:00 78 07/05/17 12:00 98.8 72 20 105/64 100 Nasal Cannula 2.0 Height (Feet): 5 Height (Inches): 3.00 Weight (Pounds): 198 General Appearance: no acute distress HEENT: mucous membranes moist Respiratory/Chest: lungs clear, other - O2 by nasal cannula Cardiovascular: normal rate Abdomen: soft, non tender Extremities: no edema Neurologic/Psychiatric: other - sleeping Microbiology Date/Time Source Procedure Growth Status 07/05/17 03:20 Blood Blood Culture - Preliminary NO GROWTH AFTER 24 HOURS Resulted 07/05/17 03:15 Blood Blood Culture - Preliminary NO GROWTH AFTER 24 HOURS Resulted Current Medications Medications (Trade) Dose Ordered Sig/Meagan Route PRN Reason Start Time Stop Time Status Last Admin Dose Admin Acetaminophen (Tylenol) 650 mg Q4H PRN ORAL Fever 07/04/17 10:15 08/03/17 10:14 07/04/17 11:44 Acetaminophen/ Hydrocodone Bitart ([place] 5/325) 1 tab Q6H PRN ORAL For Pain 07/04/17 13:00 07/11/17 12:59 07/06/17 03:11 Albuterol/ Ipratropium (DuoNeb 0.5-3(2.5)mg/3ml) 3 ml Q4H PRN HHN Shortness of Breath 07/04/17 10:15 07/09/17 10:14 Amlodipine Besylate (Norvasc) 5 mg Q12HR ORAL 07/04/17 21:00 08/03/17 20:59 07/05/17 20:24 Aspirin (ASA) 325 mg DAILY ORAL 07/05/17 14:00 08/04/17 13:59 07/05/17 14:52 Carvedilol (Coreg) 6.25 mg EVERY 12 HOURS ORAL 07/04/17 21:00 08/03/17 20:59 07/05/17 20:24 Clonidine HCl (Catapres) 0.1 mg Q6H PRN ORAL sbp more than 160 07/04/17 10:15 08/03/17 10:14 07/04/17 12:23 Dextrose (Dextrose 50%) STAT PRN IV Hypoglycemia 07/04/17 10:15 08/03/17 10:14 Docusate Sodium (Colace) 100 mg TWICE A DAY ORAL 07/05/17 13:30 08/04/17 13:29 07/05/17 18:34 Heparin Sodium (Porcine) (Heparin 5000 units/ml) 5,000 units EVERY 12 HOURS SUBQ 07/04/17 21:00 08/03/17 20:59 07/05/17 20:29 Levofloxacin 100 ml @ 100 mls/hr Q48H IVPB 07/05/17 01:00 07/12/17 00:59 07/05/17 02:05 Lisinopril (Prinivil) 40 mg DAILY ORAL 07/05/17 09:00 08/04/17 08:59 07/05/17 08:39 Nitroglycerin (Ntg) 0.4 mg Q5M PRN SL Prn Chest Pain 07/04/17 07:30 08/03/17 07:29 07/04/17 07:41 Ondansetron HCl (Zofran) 4 mg Q6H PRN IVP Nausea & Vomiting 07/04/17 10:15 08/03/17 10:14 Pantoprazole (Protonix) 40 mg ACBREAKFAST ORAL 07/05/17 13:30 08/04/17 13:29 07/06/17 05:19 Polyethylene Glycol (Miralax) 17 gm DAILYPRN PRN ORAL Constipation 07/04/17 10:15 08/03/17 10:14 Temazepam (Restoril) 15 mg HSPRN PRN ORAL Insomnia 07/04/17 10:15 07/11/17 10:14 07/04/17 21:00 Vancomycin HCl (Vanco rx to dose) 1 ea DAILY PRN MISC Per rx protocol 07/05/17 00:15 08/04/17 00:14 FRANCISCO AUGUSTE Jul 06, 2017 08:44
[2017-07-06] MEDS: Carvedilol 6.25mg Tab ORAL SCH ×2 (09:07→21:29)
[2017-07-06] MEDS: Lisinopril 20mg tab ORAL SCH (09:09)
[2017-07-06] MEDS: Docusate 100mg cap ORAL SCH ×2 (09:11→17:31)
[2017-07-06] MEDS: Heparin 5000 units/ml inj SUBQ SCH ×2 (09:14→21:30)
--- NOTE | 2017-07-06 11:40 | General Progress Note ---
Assessment/Plan Status: stable Assessment/Plan Primary Impression: Acute coronary syndrome Additional Impressions: CHF exacerbation ESRD (end stage renal disease) Hypoxia Possible sepsis ( line ) or pneumonia Plan: HD and UF done 07/04 repeat 07/07 keep BP in check start ASA Stool softners Gastric support per cardiology Global left ventricular hypokinesis. Left ventricular ejection fraction estimated to be 50 %. Mild left ventricular hypertrophy. Subjective ROS Limited/Unobtainable: No Constitutional: Reports: malaise Allergies: Coded Allergies: No Known Allergies (Unverified , 07/04/17) Objective Last 24 Hour Vital Signs Date Time Temp Pulse Resp B/P (MAP) Pulse Ox O2 Delivery O2 Flow Rate FiO2 07/06/17 09:09 64 123/64 07/06/17 09:09 123/64 07/06/17 09:07 64 123/64 07/06/17 08:00 62 07/06/17 08:00 98.3 64 21 123/64 97 Nasal Cannula 3.0 07/06/17 07:17 Nasal Cannula 3.0 32 07/06/17 07:17 89 20 Nasal Cannula 3.0 32 07/06/17 05:00 98.4 68 20 119/62 94 Nasal Cannula 3.0 07/06/17 04:11 59 07/06/17 00:18 97.7 73 20 147/65 94 Nasal Cannula 3.0 07/05/17 23:48 63 07/05/17 21:02 Nasal Cannula 3.0 32 07/05/17 21:02 66 20 Nasal Cannula 3.0 32 07/05/17 20:24 64 141/68 07/05/17 20:24 64 141/68 07/05/17 20:00 99.4 64 20 141/68 96 Nasal Cannula 20.0 07/05/17 19:11 65 07/05/17 16:00 98.5 74 20 132/74 96 Nasal Cannula 2.0 07/05/17 16:00 71 07/05/17 12:00 78 07/05/17 12:00 98.8 72 20 105/64 100 Nasal Cannula 2.0 Intake and Output 07/06/17 07/07/17 19:00 07:00 Intake Total 480 ml Balance 480 ml Intake Oral 480 ml Height (Feet): 5 Height (Inches): 3.00 Weight (Pounds): 198 General Appearance: no apparent distress Objective other PE not changed FREDDIE GARCIA Jul 06, 2017 11:40
--- NOTE | 2017-07-06 11:44 | Pulmonology Progress Note ---
Assessment/Plan Problems: (1) Respiratory failure, acute (2) Acute coronary syndrome (3) ESRD (end stage renal disease) (4) Leukocytosis Assessment/Plan feeling better f/u wbc abx as per ID check labs echo reviewed tropoin still elevated awaiting cardio consult Subjective ROS Limited/Unobtainable: No Constitutional: Reports: no symptoms Respiratory: Reports: no symptoms Allergies: Coded Allergies: No Known Allergies (Unverified , 07/04/17) Objective Last 24 Hour Vital Signs Date Time Temp Pulse Resp B/P (MAP) Pulse Ox O2 Delivery O2 Flow Rate FiO2 07/06/17 09:09 64 123/64 07/06/17 09:09 123/64 07/06/17 09:07 64 123/64 07/06/17 08:00 62 07/06/17 08:00 98.3 64 21 123/64 97 Nasal Cannula 3.0 07/06/17 07:17 Nasal Cannula 3.0 32 07/06/17 07:17 89 20 Nasal Cannula 3.0 32 07/06/17 05:00 98.4 68 20 119/62 94 Nasal Cannula 3.0 07/06/17 04:11 59 07/06/17 00:18 97.7 73 20 147/65 94 Nasal Cannula 3.0 07/05/17 23:48 63 07/05/17 21:02 Nasal Cannula 3.0 32 07/05/17 21:02 66 20 Nasal Cannula 3.0 32 07/05/17 20:24 64 141/68 07/05/17 20:24 64 141/68 07/05/17 20:00 99.4 64 20 141/68 96 Nasal Cannula 20.0 07/05/17 19:11 65 07/05/17 16:00 98.5 74 20 132/74 96 Nasal Cannula 2.0 07/05/17 16:00 71 07/05/17 12:00 78 07/05/17 12:00 98.8 72 20 105/64 100 Nasal Cannula 2.0 Intake and Output 07/06/17 07/07/17 19:00 07:00 Intake Total 480 ml Balance 480 ml Intake Oral 480 ml General Appearance: WD/WN HEENT: normocephalic, atraumatic Respiratory/Chest: chest wall non-tender, lungs clear Cardiovascular: normal peripheral pulses, normal rate Abdomen: normal bowel sounds, soft, non tender, no scars Genitourinary: normal external genitalia Extremities: no clubbing Skin: no rash Microbiology Date/Time Source Procedure Growth Status 07/05/17 03:20 Blood Blood Culture - Preliminary NO GROWTH AFTER 24 HOURS Resulted 07/05/17 03:15 Blood Blood Culture - Preliminary NO GROWTH AFTER 24 HOURS Resulted 07/05/17 07:50 Urine,Clean Catch Urine Culture - Preliminary NO GROWTH AFTER 24 HOURS Resulted Current Medications Medications (Trade) Dose Ordered Sig/Meagan Route PRN Reason Start Time Stop Time Status Last Admin Dose Admin Acetaminophen (Tylenol) 650 mg Q4H PRN ORAL Fever 07/04/17 10:15 08/03/17 10:14 07/04/17 11:44 Acetaminophen/ Hydrocodone Bitart ([place] 5/325) 1 tab Q6H PRN ORAL For Pain 07/04/17 13:00 07/11/17 12:59 07/06/17 09:17 Albuterol/ Ipratropium (DuoNeb 0.5-3(2.5)mg/3ml) 3 ml Q4H PRN HHN Shortness of Breath 07/04/17 10:15 07/09/17 10:14 Amlodipine Besylate (Norvasc) 5 mg Q12HR ORAL 07/04/17 21:00 08/03/17 20:59 07/06/17 09:09 Aspirin (ASA) 325 mg DAILY ORAL 07/05/17 14:00 08/04/17 13:59 07/06/17 09:07 Carvedilol (Coreg) 6.25 mg EVERY 12 HOURS ORAL 07/04/17 21:00 08/03/17 20:59 07/06/17 09:07 Clonidine HCl (Catapres) 0.1 mg Q6H PRN ORAL sbp more than 160 07/04/17 10:15 08/03/17 10:14 07/04/17 12:23 Dextrose (Dextrose 50%) STAT PRN IV Hypoglycemia 07/04/17 10:15 08/03/17 10:14 Docusate Sodium (Colace) 100 mg TWICE A DAY ORAL 07/05/17 13:30 08/04/17 13:29 07/06/17 09:11 Heparin Sodium (Porcine) (Heparin 5000 units/ml) 5,000 units EVERY 12 HOURS SUBQ 07/04/17 21:00 08/03/17 20:59 07/06/17 09:14 Levofloxacin 100 ml @ 100 mls/hr Q48H IVPB 07/05/17 01:00 07/12/17 00:59 07/05/17 02:05 Lisinopril (Prinivil) 40 mg DAILY ORAL 07/05/17 09:00 08/04/17 08:59 07/06/17 09:09 Nitroglycerin (Ntg) 0.4 mg Q5M PRN SL Prn Chest Pain 07/04/17 07:30 08/03/17 07:29 07/04/17 07:41 Ondansetron HCl (Zofran) 4 mg Q6H PRN IVP Nausea & Vomiting 07/04/17 10:15 08/03/17 10:14 Pantoprazole (Protonix) 40 mg ACBREAKFAST ORAL 07/05/17 13:30 08/04/17 13:29 07/06/17 05:19 Polyethylene Glycol (Miralax) 17 gm DAILYPRN PRN ORAL Constipation 07/04/17 10:15 08/03/17 10:14 Temazepam (Restoril) 15 mg HSPRN PRN ORAL Insomnia 07/04/17 10:15 07/11/17 10:14 07/04/17 21:00 Vancomycin HCl (Vanco rx to dose) 1 ea DAILY PRN MISC Per rx protocol 07/05/17 00:15 08/04/17 00:14 TO [facility] Jul 06, 2017 11:44
--- NOTE | 2017-07-06 17:00 | Consultation ---
Consult Note Consult Note Cardiology for Dr. James Full consult dictated [id number] CÉSAR RODRIGUEZ Jul 06, 2017 17:00
[2017-07-06] MEDS ORDERED: Nitroglycerin Subl 0.4mg tab SL PRN (19:45)
[2017-07-06] MEDS ORDERED: Albuterol/Ipratropium 3ml neb HHN PRN (20:00)
[2017-07-06] MEDS ORDERED: Miralax 17gm pkt ORAL PRN (20:00)
[2017-07-06] MEDS ORDERED: Metoprolol Tartrate 12.5mg TAB ORAL SCH (21:00)
[2017-07-07] VITALS (7 sets, daily range): BP systolic 109–147; BP diastolic 56–85
--- NOTE | 2017-07-07 03:15 | Consultation ---
DATE OF CONSULTATION: 07/06/2017 CARDIOLOGY CONSULTATION This is a Cardiology consult being done as coverage for Dr. James. REQUESTING PHYSICIAN: Mario Patel M.D. REASON FOR CONSULT: Chest pain. HISTORY OF PRESENT ILLNESS: The patient is a 56-year-old, man with history of hypertension and end-stage renal disease on hemodialysis over the past year, who developed right-sided chest pain radiating to his lower back on the day of admission. The pain began in the evening and awoke him from sleep. The following morning, he presented to the emergency room. He noted mild dyspnea. No diaphoresis, nausea, or vomiting. He has not had any previous similar symptoms. He had no palpitations, dizziness, or lightheadedness. He had no cough, fever, chills, or sweats. His coronary risk factors include hypertension and previous tobacco use (one and half pack per day, stopped one year ago). There is no history of diabetes, hyperlipidemia, or family history of premature coronary artery disease. He has never had stress testing or other evaluation for myocardial ischemia. PAST MEDICAL HISTORY: As noted above. 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 CURRENT MEDICATIONS: Aspirin 325 mg daily, Colace 100 mg twice daily, Protonix 40 mg daily, lisinopril 40 mg daily, Levaquin 100 mL IV every 48 hours, Coreg 6.25 mg q.12 h., subcutaneous heparin 5000 units q.12 h., amlodipine 5 mg daily, Purcell 5/325 mg q.6 h. p.r.n., clonidine p.r.n., DuoNeb nebulizer q.4 h. p.r.n., Zofran p.r.n., Tylenol p.r.n., and sublingual nitroglycerin as needed. ALLERGIES: No known drug allergies. SOCIAL HISTORY: The patient has a history of one-half pack per day tobacco use, but stopped smoking a year ago. No history of alcohol abuse. Previous history of cocaine use, stopped over one year ago. FAMILY HISTORY: The patient's mother with throat cancer and had hypertension. She was 68. The patient's father with complications of diabetes. PHYSICAL EXAMINATION: VITAL SIGNS: Blood pressure is 117/74, pulse 67, respirations 21, and temperature 99 degrees. GENERAL: Alert, well-developed man, in no acute distress. HEENT: Normocephalic and atraumatic. Pupils are equal, round, and reactive to light. Sclerae anicteric. Oral mucosa moist. NECK: Supple. There is no jugular venous distention. No carotid bruits. LUNGS: Decreased breath sounds at the right base. No rales or wheezes. HEART: Regular S1 and S2. Positive S4. No murmurs or rubs. ABDOMEN: Soft, nontender. No palpable mass. EXTREMITIES: No cyanosis, clubbing, or edema. A 2+ dorsalis pedis and posterior tibial pulses bilaterally. SKIN: No rashes or lesions. LABORATORY AND DIAGNOSTIC DATA: Hemoglobin 10.7, white blood count 13,900 (16.5 on admission), and platelets 304,000. Potassium 3.9, BUN 46, and creatinine 5.3. Troponin 0.593 on admission and repeat 0.526. ProBNP 1721. EKG shows sinus rhythm, rate of 75 beats per minute, left atrial enlargement, axis +60 degrees. Nonspecific T-wave changes (inverted in I and L). No ST-segment elevation. Urine and blood cultures are negative at 24 hours. Chest x-ray showed bilateral pleural effusions, left greater than right. Mild interstitial edema. Echocardiogram shows concentric left ventricular hypertrophy, [id number]. EF 50%. Trace mitral and tricuspid regurgitation. Normal pulmonary pressures. ASSESSMENT AND RECOMMENDATIONS: The patient is a 56-year-old man with history of hypertension and end-stage renal disease on hemodialysis, who was admitted with chest pain. He is noted to have mild troponin elevation and no ischemic changes on EKG. The cause of his chest pain is uncertain, however, would rule out ischemia/acute coronary syndrome. The persistent troponin elevation may be due to renal failure. However, given his coronary risk factors, I would favor obtaining a stress myocardial perfusion study. Would also evaluate for possible pulmonary embolus. His D-dimer and venous duplex will be obtained. His blood pressure is currently controlled on medications. I would also favor obtaining a lipid panel. Would continue aspirin and start beta-blockers. His LDL was noted to be 32. So would not favor starting statin. Would also evaluate for possible pulmonary embolus. Further recommendations will be made based on his clinical course and results of above testing. Dr. James will continue to follow the patient starting 07/07/2017. Catrachita Baires M.D. DR: Leigh JOB#: [id number] CC: CHARISSE
[2017-07-07] MEDS: Norco 5mg/325mg tab ORAL PRN ×2 (06:21→18:25)
[2017-07-07 08:09] LABS: BASOPHILS % (AUTO) 0.5 % (0.0-2.0); EOSINOPHILS % (AUTO) 7.5 % (0.0-3.0); LYMPHOCYTES % (AUTO) 12.3 % (20.0-45.0); MEAN CORPUSCULAR HEMOGLOBIN 29.9 PG (27.0-31.0); MEAN CORPUSCULAR HGB CONC 31.5 G/DL (32.0-36.0); MEAN CORPUSCULAR VOLUME 95 FL (80-99); MEAN PLATELET VOLUME 5.8 FL (6.5-10.1); MONOCYTES % (AUTO) 8.2 % (1.0-10.0); NEUTROPHILS % (AUTO) 71.5 % (45.0-75.0); PLATELET COUNT 327 K/UL (150-450); RED BLOOD COUNT 3.03 M/UL (4.70-6.10); RED CELL DISTRIBUTION WIDTH 14.2 % (11.6-14.8); WHITE BLOOD COUNT 12.3 K/UL (4.8-10.8)
[2017-07-07 08:41] LABS: ALANINE AMINOTRANSFERASE 16 U/L (12-78); ALBUMIN/GLOBULIN RATIO 0.6 (1.0-2.7); ANION GAP 9 mmol/L (5-15); ASPARTATE AMINO TRANSFERASE 14 U/L (15-37); CALCIUM 9.2 MG/DL (8.5-10.1); CARBON DIOXIDE 28 MMOL/L (21-32); CHLORIDE 94 MMOL/L (98-107); CREATININE 7.4 MG/DL (0.55-1.30); GLOMERULAR FILTRATION RATE 9.3 mL/min (>60); POTASSIUM 4.4 MMOL/L (3.5-5.1); SODIUM 131 MMOL/L (136-145); TOTAL PROTEIN 6.8 G/DL (6.4-8.2)
[2017-07-07] MEDS: Heparin 5000 units/ml inj SUBQ SCH ×2 (09:00→20:47)
[2017-07-07] MEDS: Docusate 100mg cap ORAL SCH ×2 (09:24→18:24)
[2017-07-07] MEDS: Carvedilol 6.25mg Tab ORAL SCH ×2 (09:24→20:48)
[2017-07-07] MEDS: Lisinopril 20mg tab ORAL SCH (09:24)
--- NOTE | 2017-07-07 09:38 | Infectious Diseases Prog Note ---
Assessment/Plan Assessment/Plan ASSESSMENT: Pneumonia -CXR Bilateral left greater than right pleural effusions. Retrocardiac consolidation, mild generalized interstitial congestion -Sp cx normal gerard to date -Bcx NTD Cardiomegaly Pleural effusion Leukocytosis, improving -u/a neg, ucx neg ACS ESRD on HD Diastolic CHF PLAN: -D/C IV Vancomycin #3 -Continue Levaquin #3/5-7 -f/u cx -Monitor CBC/BMP, temperatures -aspiration precautions Discussed with RN. Subjective Allergies: Coded Allergies: No Known Allergies (Unverified , 07/04/17) Subjective afebrile Objective Vital Signs Last 24 Hour Vital Signs Date Time Temp Pulse Resp B/P (MAP) Pulse Ox O2 Delivery O2 Flow Rate FiO2 07/07/17 09:24 109/56 07/07/17 09:24 56 109/56 07/07/17 09:24 56 109/56 07/07/17 08:00 97.3 56 20 109/56 98 Nasal Cannula 3.0 07/07/17 07:30 61 18 Nasal Cannula 3.0 32 07/07/17 07:30 Nasal Cannula 3.0 32 07/07/17 04:26 63 07/07/17 04:00 97.7 59 20 143/67 Nasal Cannula 3.0 07/07/17 00:10 80 07/07/17 00:00 97.9 60 20 127/60 96 Nasal Cannula 3.0 60 07/06/17 21:29 70 147/77 07/06/17 21:29 70 147/77 07/06/17 20:11 84 07/06/17 20:00 98.2 70 22 147/77 98 Nasal Cannula 3.0 70 07/06/17 19:08 80 18 Nasal Cannula 3.0 32 07/06/17 19:08 Nasal Cannula 3.0 32 07/06/17 18:25 96.6 69 20 185/74 93 Room Air 07/06/17 16:00 99.0 67 21 117/74 99 Nasal Cannula 3.0 07/06/17 16:00 61 07/06/17 12:00 98.4 64 20 135/77 97 Nasal Cannula 3.0 07/06/17 12:00 62 Height (Feet): 5 Height (Inches): 3.00 Weight (Pounds): 198 Objective HEENT: No pale conjunctivae. No icterus. NECK: No lymphadenopathy. CHEST: Clear. HEART: S1 and S2. ABDOMEN: Soft. SKIN: No rash. NEUROLOGIC: Awake and alert. Microbiology Date/Time Source Procedure Growth Status 07/05/17 03:20 Blood Blood Culture - Preliminary NO GROWTH AFTER 48 HOURS Resulted 07/05/17 03:15 Blood Blood Culture - Preliminary NO GROWTH AFTER 48 HOURS Resulted 07/05/17 07:50 Sputum Gram Stain - Final Complete 07/05/17 07:50 Sputum Sputum Culture - Final NORMAL UPPER RESPIRATORY GERARD AT 48 ... Complete 07/05/17 07:50 Urine,Clean Catch Urine Culture - Final NO GROWTH AFTER 48 HOURS Complete Laboratory Tests Test 07/07/17 07:10 White Blood Count 12.3 K/UL (4.8-10.8) H Red Blood Count 3.03 M/UL (4.70-6.10) L Hemoglobin 9.0 G/DL (14.2-18.0) L Hematocrit 28.7 % (42.0-52.0) L Mean Corpuscular Volume 95 FL (80-99) Mean Corpuscular Hemoglobin 29.9 PG (27.0-31.0) Mean Corpuscular Hemoglobin Concent 31.5 G/DL (32.0-36.0) L Red Cell Distribution Width 14.2 % (11.6-14.8) Platelet Count 327 K/UL (150-450) Mean Platelet Volume 5.8 FL (6.5-10.1) L Neutrophils (%) (Auto) 71.5 % (45.0-75.0) Lymphocytes (%) (Auto) 12.3 % (20.0-45.0) L Monocytes (%) (Auto) 8.2 % (1.0-10.0) Eosinophils (%) (Auto) 7.5 % (0.0-3.0) H Basophils (%) (Auto) 0.5 % (0.0-2.0) D-Dimer 6.98 mg/L FEU (0.00-0.49) H Sodium Level 131 MMOL/L (136-145) L Potassium Level 4.4 MMOL/L (3.5-5.1) Chloride Level 94 MMOL/L (98-107) L Carbon Dioxide Level 28 MMOL/L (21-32) Anion Gap 9 mmol/L (5-15) Blood Urea Nitrogen 75 mg/dL (7-18) H Creatinine 7.4 MG/DL (0.55-1.30) H Estimat Glomerular Filtration Rate 9.3 mL/min (>60) Glucose Level 93 MG/DL (74-106) Calcium Level 9.2 MG/DL (8.5-10.1) Total Bilirubin 0.3 MG/DL (0.2-1.0) Aspartate Amino Transf (AST/SGOT) 14 U/L (15-37) L Alanine Aminotransferase (ALT/SGPT) 16 U/L (12-78) Alkaline Phosphatase 76 U/L (46-116) Troponin I Pending Pro-B-Type Natriuretic Peptide Pending Total Protein 6.8 G/DL (6.4-8.2) Albumin 2.5 G/DL (3.4-5.0) L Globulin 4.3 g/dL Albumin/Globulin Ratio 0.6 (1.0-2.7) L Random Vancomycin Level 10.0 ug/mL Current Medications Medications (Trade) Dose Ordered Sig/Meagan Route PRN Reason Start Time Stop Time Status Last Admin Dose Admin Acetaminophen (Tylenol) 650 mg Q4H PRN ORAL Fever 07/06/17 20:00 08/03/17 19:59 Acetaminophen/ Hydrocodone Bitart ([place] 5/325) 1 tab Q6H PRN ORAL For Pain Scale 4-10 07/06/17 20:00 07/13/17 19:59 07/07/17 06:21 Albuterol/ Ipratropium (DuoNeb 0.5-3(2.5)mg/3ml) 3 ml Q4H PRN HHN Shortness of Breath 07/06/17 20:00 07/09/17 19:59 Amlodipine Besylate (Norvasc) 5 mg Q12HR ORAL 07/06/17 21:00 08/03/17 20:59 07/07/17 09:24 Aspirin (ASA) 325 mg DAILY ORAL 07/07/17 09:00 08/04/17 13:59 07/07/17 09:24 Carvedilol (Coreg) 6.25 mg EVERY 12 HOURS ORAL 07/06/17 21:00 08/03/17 20:59 07/07/17 09:24 Clonidine HCl (Catapres) 0.1 mg Q6H PRN ORAL sbp more than 160 07/06/17 20:00 08/03/17 19:59 Dextrose (Dextrose 50%) STAT PRN IV Hypoglycemia 07/06/17 20:00 08/05/17 19:59 Docusate Sodium (Colace) 100 mg TWICE A DAY ORAL 07/07/17 09:00 08/04/17 13:29 07/07/17 09:24 Heparin Sodium (Porcine) (Heparin 5000 units/ml) 5,000 units EVERY 12 HOURS SUBQ 07/06/17 21:00 08/03/17 20:59 07/06/17 21:30 Levofloxacin 100 ml @ 100 mls/hr Q48H IVPB 07/07/17 01:00 07/12/17 00:59 07/07/17 00:46 Lisinopril (Prinivil) 40 mg DAILY ORAL 07/07/17 09:00 08/04/17 08:59 07/07/17 09:24 Nitroglycerin (Ntg) 0.4 mg Q5MIN X 3 DOSES PRN SL Prn Chest Pain 07/06/17 19:45 08/05/17 19:44 Ondansetron HCl (Zofran) 4 mg Q6H PRN IVP Nausea & Vomiting 07/06/17 20:00 08/03/17 19:59 Pantoprazole (Protonix) 40 mg ACBREAKFAST ORAL 07/07/17 06:30 08/04/17 13:29 07/07/17 06:21 Polyethylene Glycol (Miralax) 17 gm DAILYPRN PRN ORAL Constipation 07/06/17 20:00 08/05/17 19:59 Temazepam (Restoril) 15 mg HSPRN PRN ORAL Insomnia 07/06/17 20:00 07/13/17 19:59 Vancomycin HCl (Vanco rx to dose) 1 ea DAILY PRN MISC Per rx protocol 07/07/17 09:00 08/04/17 00:14 Bernadine Mandel M.D. Jul 07, 2017 09:38
--- NOTE | 2017-07-07 09:52 | Diagnostic Imaging Report ---
Indication: DYSPNEA Technique: One view of the chest Comparison: 07/04/2017 Findings: The heart is enlarged. There is bilateral diffuse interstitial edema and perihilar and basilar atelectatic changes. There is probably a small amount of pleural fluid bilaterally. Findings are overall unchanged Impression: Unchanged, over 3 days, findings as above.
--- NOTE | 2017-07-07 10:41 | General Progress Note ---
Assessment/Plan Status: stable Status Narrative currently on HD Assessment/Plan Primary Impression: Acute coronary syndrome Additional Impressions: CHF exacerbation ESRD (end stage renal disease) Hypoxia Possible sepsis ( line ) or pneumonia Plan: HD and UF done 07/04 repeat 07/07- in process keep BP in check start ASA Stool softners Gastric support per cardiology ? DC planning? Global left ventricular hypokinesis. Left ventricular ejection fraction estimated to be 50 %. Mild left ventricular hypertrophy. Subjective ROS Limited/Unobtainable: No Constitutional: Reports: malaise Allergies: Coded Allergies: No Known Allergies (Unverified , 07/04/17) Objective Last 24 Hour Vital Signs Date Time Temp Pulse Resp B/P (MAP) Pulse Ox O2 Delivery O2 Flow Rate FiO2 07/07/17 09:30 Room Air 3.0 07/07/17 09:30 97.5 74 22 136/75 93 Nasal Cannula 3.0 07/07/17 09:24 109/56 07/07/17 09:24 56 109/56 07/07/17 09:24 56 109/56 07/07/17 08:00 97.3 56 20 109/56 98 Nasal Cannula 3.0 07/07/17 08:00 60 07/07/17 07:30 61 18 Nasal Cannula 3.0 32 07/07/17 07:30 Nasal Cannula 3.0 32 07/07/17 04:26 63 07/07/17 04:00 97.7 59 20 143/67 Nasal Cannula 3.0 07/07/17 00:10 80 07/07/17 00:00 97.9 60 20 127/60 96 Nasal Cannula 3.0 60 07/06/17 21:29 70 147/77 07/06/17 21:29 70 147/77 07/06/17 20:11 84 07/06/17 20:00 98.2 70 22 147/77 98 Nasal Cannula 3.0 70 07/06/17 19:08 80 18 Nasal Cannula 3.0 32 07/06/17 19:08 Nasal Cannula 3.0 32 07/06/17 18:25 96.6 69 20 185/74 93 Room Air 07/06/17 16:00 99.0 67 21 117/74 99 Nasal Cannula 3.0 07/06/17 16:00 61 07/06/17 12:00 98.4 64 20 135/77 97 Nasal Cannula 3.0 07/06/17 12:00 62 Laboratory Tests 07/07/17 07:10: White Blood Count 12.3H, Red Blood Count 3.03L, Hemoglobin 9.0L, Hematocrit 28.7L, Mean Corpuscular Volume 95, Mean Corpuscular Hemoglobin 29.9, Mean Corpuscular Hemoglobin Concent 31.5L, Red Cell Distribution Width 14.2, Platelet Count 327, Mean Platelet Volume 5.8L, Neutrophils (%) (Auto) 71.5, Lymphocytes (%) (Auto) 12.3L, Monocytes (%) (Auto) 8.2, Eosinophils (%) (Auto) 7.5H, Basophils (%) (Auto) 0.5, D-Dimer 6.98H, Sodium Level 131L, Potassium Level 4.4, Chloride Level 94L, Carbon Dioxide Level 28, Anion Gap 9, Blood Urea Nitrogen 75H, Creatinine 7.4H, Estimat Glomerular Filtration Rate 9.3, Glucose Level 93, Calcium Level 9.2, Total Bilirubin 0.3, Aspartate Amino Transf (AST/ SGOT) 14L, Alanine Aminotransferase (ALT/SGPT) 16, Alkaline Phosphatase 76, Troponin I 0.388H, Pro-B-Type Natriuretic Peptide 1258H, Total Protein 6.8, Albumin 2.5L, Globulin 4.3, Albumin/Globulin Ratio 0.6L, Random Vancomycin Level 10.0 Height (Feet): 5 Height (Inches): 3.00 Weight (Pounds): 198 General Appearance: no apparent distress Objective other PE not changed FREDDIE GARCIA Jul 07, 2017 10:41
--- NOTE | 2017-07-07 11:33 | Pulmonology Progress Note ---
Assessment/Plan Problems: (1) Respiratory failure, acute (2) Acute coronary syndrome (3) ESRD (end stage renal disease) (4) Leukocytosis Assessment/Plan feeling better f/u wbc abx as per ID, vanco d/leyda, on Levofloxacin check labs echo reviewed tropoin still elevated cardio consult, refusing stress test Subjective ROS Limited/Unobtainable: No Interval Events: c/o of right chest wall pain, close to HD access site Allergies: Coded Allergies: No Known Allergies (Unverified , 07/04/17) Objective Last 24 Hour Vital Signs Date Time Temp Pulse Resp B/P (MAP) Pulse Ox O2 Delivery O2 Flow Rate FiO2 07/07/17 09:30 Room Air 3.0 07/07/17 09:30 97.5 74 22 136/75 93 Nasal Cannula 3.0 07/07/17 09:24 109/56 07/07/17 09:24 56 109/56 07/07/17 09:24 56 109/56 07/07/17 08:00 97.3 56 20 109/56 98 Nasal Cannula 3.0 07/07/17 08:00 60 07/07/17 07:30 61 18 Nasal Cannula 3.0 32 07/07/17 07:30 Nasal Cannula 3.0 32 07/07/17 04:26 63 07/07/17 04:00 97.7 59 20 143/67 Nasal Cannula 3.0 07/07/17 00:10 80 07/07/17 00:00 97.9 60 20 127/60 96 Nasal Cannula 3.0 60 07/06/17 21:29 70 147/77 07/06/17 21:29 70 147/77 07/06/17 20:11 84 07/06/17 20:00 98.2 70 22 147/77 98 Nasal Cannula 3.0 70 07/06/17 19:08 80 18 Nasal Cannula 3.0 32 07/06/17 19:08 Nasal Cannula 3.0 32 07/06/17 18:25 96.6 69 20 185/74 93 Room Air 07/06/17 16:00 99.0 67 21 117/74 99 Nasal Cannula 3.0 07/06/17 16:00 61 07/06/17 12:00 98.4 64 20 135/77 97 Nasal Cannula 3.0 07/06/17 12:00 62 General Appearance: WD/WN HEENT: normocephalic, atraumatic Respiratory/Chest: chest wall non-tender, lungs clear Cardiovascular: normal peripheral pulses, normal rate Genitourinary: normal external genitalia Extremities: no cyanosis Skin: no lesions Neurologic/Psychiatric: coal 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 Complete 07/05/17 07:50 Urine,Clean Catch Urine Culture - Final NO GROWTH AFTER 48 HOURS Complete Laboratory Tests 07/07/17 07:10: White Blood Count 12.3H, Red Blood Count 3.03L, Hemoglobin 9.0L, Hematocrit 28.7L, Mean Corpuscular Volume 95, Mean Corpuscular Hemoglobin 29.9, Mean Corpuscular Hemoglobin Concent 31.5L, Red Cell Distribution Width 14.2, Platelet Count 327, Mean Platelet Volume 5.8L, Neutrophils (%) (Auto) 71.5, Lymphocytes (%) (Auto) 12.3L, Monocytes (%) (Auto) 8.2, Eosinophils (%) (Auto) 7.5H, Basophils (%) (Auto) 0.5, D-Dimer 6.98H, Sodium Level 131L, Potassium Level 4.4, Chloride Level 94L, Carbon Dioxide Level 28, Anion Gap 9, Blood Urea Nitrogen 75H, Creatinine 7.4H, Estimat Glomerular Filtration Rate 9.3, Glucose Level 93, Calcium Level 9.2, Total Bilirubin 0.3, Aspartate Amino Transf (AST/ SGOT) 14L, Alanine Aminotransferase (ALT/SGPT) 16, Alkaline Phosphatase 76, Troponin I 0.388H, Pro-B-Type Natriuretic Peptide 1258H, Total Protein 6.8, Albumin 2.5L, Globulin 4.3, Albumin/Globulin Ratio 0.6L, Random Vancomycin Level 10.0 Current Medications Medications (Trade) Dose Ordered Sig/Meagan Route PRN Reason Start Time Stop Time Status Last Admin Dose Admin Acetaminophen (Tylenol) 650 mg Q4H PRN ORAL Fever 07/06/17 20:00 08/03/17 19:59 Acetaminophen/ Hydrocodone Bitart ([place] 5/325) 1 tab Q6H PRN ORAL For Pain Scale 4-10 07/06/17 20:00 07/13/17 19:59 07/07/17 06:21 Albuterol/ Ipratropium (DuoNeb 0.5-3(2.5)mg/3ml) 3 ml Q4H PRN HHN Shortness of Breath 07/06/17 20:00 07/09/17 19:59 Amlodipine Besylate (Norvasc) 5 mg Q12HR ORAL 07/06/17 21:00 08/03/17 20:59 07/07/17 09:24 Aspirin (ASA) 325 mg DAILY ORAL 07/07/17 09:00 08/04/17 13:59 07/07/17 09:24 Carvedilol (Coreg) 6.25 mg EVERY 12 HOURS ORAL 07/06/17 21:00 08/03/17 20:59 07/07/17 09:24 Clonidine HCl (Catapres) 0.1 mg Q6H PRN ORAL sbp more than 160 07/06/17 20:00 08/03/17 19:59 Dextrose (Dextrose 50%) STAT PRN IV Hypoglycemia 07/06/17 20:00 08/05/17 19:59 Docusate Sodium (Colace) 100 mg TWICE A DAY ORAL 07/07/17 09:00 08/04/17 13:29 07/07/17 09:24 Heparin Sodium (Porcine) (Heparin 5000 units/ml) 5,000 units EVERY 12 HOURS SUBQ 07/06/17 21:00 08/03/17 20:59 07/06/17 21:30 Levofloxacin 100 ml @ 100 mls/hr Q48H IVPB 07/07/17 01:00 07/12/17 00:59 07/07/17 00:46 Lisinopril (Prinivil) 40 mg DAILY ORAL 07/07/17 09:00 08/04/17 08:59 07/07/17 09:24 Nitroglycerin (Ntg) 0.4 mg Q5MIN X 3 DOSES PRN SL Prn Chest Pain 07/06/17 19:45 08/05/17 19:44 Ondansetron HCl (Zofran) 4 mg Q6H PRN IVP Nausea & Vomiting 07/06/17 20:00 08/03/17 19:59 Pantoprazole (Protonix) 40 mg ACBREAKFAST ORAL 07/07/17 06:30 08/04/17 13:29 07/07/17 06:21 Polyethylene Glycol (Miralax) 17 gm DAILYPRN PRN ORAL Constipation 07/06/17 20:00 08/05/17 19:59 Temazepam (Restoril) 15 mg HSPRN PRN ORAL Insomnia 07/06/17 20:00 07/13/17 19:59 TO TINSLEY Jul 07, 2017 11:33
--- NOTE | 2017-07-07 19:27 | Cardiology Progress Note ---
Assessment/Plan Assessment/Plan chest pain htn esrd on HD refused stress test as was not aware of not eating agreeabelt o have test tomorrow undertadn clear in am then npo for stress test diane no caffein diet trop stil abn likly related to renal insuf still has cp Subjective Cardiovascular: Reports: chest pain, Denies: lightheadedness, palpitations Respiratory: Denies: shortness of breath Gastrointestinal/Abdominal: Denies: abdominal pain Objective Last 24 Hour Vital Signs Date Time Temp Pulse Resp B/P (MAP) Pulse Ox O2 Delivery O2 Flow Rate FiO2 07/07/17 16:00 63 07/07/17 15:31 97.9 66 20 147/76 97 Room Air 07/07/17 12:37 Nasal Cannula 3.0 07/07/17 12:36 97.0 72 20 113/58 95 Nasal Cannula 3.0 07/07/17 12:00 59 07/07/17 09:30 Room Air 3.0 07/07/17 09:30 97.5 74 22 136/75 93 Nasal Cannula 3.0 07/07/17 09:24 109/56 07/07/17 09:24 56 109/56 07/07/17 09:24 56 109/56 07/07/17 08:00 97.3 56 20 109/56 98 Nasal Cannula 3.0 07/07/17 08:00 60 07/07/17 07:30 61 18 Nasal Cannula 3.0 32 07/07/17 07:30 Nasal Cannula 3.0 32 07/07/17 04:26 63 07/07/17 04:00 97.7 59 20 143/67 Nasal Cannula 3.0 07/07/17 00:10 80 07/07/17 00:00 97.9 60 20 127/60 96 Nasal Cannula 3.0 60 07/06/17 21:29 70 147/77 07/06/17 21:29 70 147/77 07/06/17 20:11 84 07/06/17 20:00 98.2 70 22 147/77 98 Nasal Cannula 3.0 70 General Appearance: alert Neck: supple Cardiovascular: normal rate, regular rhythm Respiratory/Chest: lungs clear, normal breath sounds Abdomen: normal bowel sounds, non tender, soft Extremities: no swelling Intake and Output 07/07/17 07/08/17 19:00 07:00 Intake Total 920 ml Output Total 3050 ml Balance -2130 ml Intake Oral 920 ml Output Urine Total 350 ml Hemodialysis UF 2700 ml Laboratory Tests Test 07/07/17 07:10 White Blood Count 12.3 K/UL (4.8-10.8) H Red Blood Count 3.03 M/UL (4.70-6.10) L Hemoglobin 9.0 G/DL (14.2-18.0) L Hematocrit 28.7 % (42.0-52.0) L Mean Corpuscular Volume 95 FL (80-99) Mean Corpuscular Hemoglobin 29.9 PG (27.0-31.0) Mean Corpuscular Hemoglobin Concent 31.5 G/DL (32.0-36.0) L Red Cell Distribution Width 14.2 % (11.6-14.8) Platelet Count 327 K/UL (150-450) Mean Platelet Volume 5.8 FL (6.5-10.1) L Neutrophils (%) (Auto) 71.5 % (45.0-75.0) Lymphocytes (%) (Auto) 12.3 % (20.0-45.0) L Monocytes (%) (Auto) 8.2 % (1.0-10.0) Eosinophils (%) (Auto) 7.5 % (0.0-3.0) H Basophils (%) (Auto) 0.5 % (0.0-2.0) D-Dimer 6.98 mg/L FEU (0.00-0.49) H Sodium Level 131 MMOL/L (136-145) L Potassium Level 4.4 MMOL/L (3.5-5.1) Chloride Level 94 MMOL/L (98-107) L Carbon Dioxide Level 28 MMOL/L (21-32) Anion Gap 9 mmol/L (5-15) Blood Urea Nitrogen 75 mg/dL (7-18) H Creatinine 7.4 MG/DL (0.55-1.30) H Estimat Glomerular Filtration Rate 9.3 mL/min (>60) Glucose Level 93 MG/DL (74-106) Calcium Level 9.2 MG/DL (8.5-10.1) Total Bilirubin 0.3 MG/DL (0.2-1.0) Aspartate Amino Transf (AST/SGOT) 14 U/L (15-37) L Alanine Aminotransferase (ALT/SGPT) 16 U/L (12-78) Alkaline Phosphatase 76 U/L (46-116) Troponin I 0.388 ng/mL (0.000-0.056) Pro-B-Type Natriuretic Peptide 1258 pg/mL (0-125) H Total Protein 6.8 G/DL (6.4-8.2) Albumin 2.5 G/DL (3.4-5.0) L Globulin 4.3 g/dL Albumin/Globulin Ratio 0.6 (1.0-2.7) L Random Vancomycin Level 10.0 ug/mL Microbiology Date/Time Source Procedure Growth Status 07/05/17 03:20 Blood Blood Culture - Preliminary NO GROWTH AFTER 48 HOURS Resulted 07/05/17 03:15 Blood Blood Culture - Preliminary NO GROWTH AFTER 48 HOURS Resulted 07/05/17 07:50 Sputum Gram Stain - Final Complete 07/05/17 07:50 Sputum Sputum Culture - Final NORMAL UPPER RESPIRATORY ERIC AT 48 ... Complete 07/05/17 07:50 Urine,Clean Catch Urine Culture - Final NO GROWTH AFTER 48 HOURS Complete LUIZA COOK Jul 07, 2017 19:27
[2017-07-08] VITALS (7 sets, daily range): BP systolic 116–153; BP diastolic 65–90
[2017-07-08] MEDS: Norco 5mg/325mg tab ORAL PRN ×2 (04:07→21:08)
[2017-07-08] MEDS: Docusate 100mg cap ORAL SCH ×2 (08:17→18:00)
[2017-07-08] MEDS: Lisinopril 20mg tab ORAL SCH (08:18)
[2017-07-08] MEDS: Heparin 5000 units/ml inj SUBQ SCH ×2 (08:19→21:07)
--- NOTE | 2017-07-08 08:45 | Cardiology Report ---
APPROVED REPORT EKG Measurement Heart [id number] MD [id number] Normal sinus rhythm Left ventricular hypertrophy with QRS widening Abnormal ECG
[2017-07-08] MEDS: Carvedilol 6.25mg Tab ORAL SCH ×2 (08:53→21:06)
--- NOTE | 2017-07-08 11:03 | Infectious Diseases Prog Note ---
Assessment/Plan Assessment/Plan ASSESSMENT: Pneumonia -CXR Bilateral left greater than right pleural effusions. Retrocardiac consolidation, mild generalized interstitial congestion -Sp cx normal gerard -Bcx NTD Cardiomegaly Pleural effusion Leukocytosis, improving -u/a neg, ucx neg ACS ESRD on HD Diastolic CHF PLAN: -Continue Levaquin #4/5-7 -s/p 3d IV Vancomycin 07/07 -f/u cx -Monitor CBC/BMP, temperatures -aspiration precautions Discussed with RN. Subjective Allergies: Coded Allergies: No Known Allergies (Unverified , 07/04/17) Subjective afebrile Objective Vital Signs Last 24 Hour Vital Signs Date Time Temp Pulse Resp B/P (MAP) Pulse Ox O2 Delivery O2 Flow Rate FiO2 07/08/17 08:18 116/90 07/08/17 08:18 79 116/90 07/08/17 08:00 97.0 79 18 116/90 95 Nasal Cannula 2.0 07/08/17 08:00 81 07/08/17 07:39 Room Air 07/08/17 07:38 94 Room Air 21 07/08/17 07:38 82 20 Room Air 21 07/08/17 04:05 98.4 71 20 138/65 97 Nasal Cannula 2.0 07/08/17 04:00 69 07/08/17 00:17 98.0 79 20 135/75 99 Nasal Cannula 2.0 07/08/17 00:00 66 07/07/17 20:48 70 144/85 07/07/17 20:48 70 144/85 07/07/17 20:26 98.8 70 20 144/85 97 Nasal Cannula 2.0 07/07/17 20:08 95 Room Air 21 07/07/17 20:07 Room Air 07/07/17 20:06 63 20 Room Air 21 07/07/17 20:00 72 07/07/17 16:00 63 07/07/17 15:31 97.9 66 20 147/76 97 Room Air 07/07/17 12:37 Nasal Cannula 3.0 07/07/17 12:36 97.0 72 20 113/58 95 Nasal Cannula 3.0 07/07/17 12:00 59 Height (Feet): 5 Height (Inches): 3.00 Weight (Pounds): 200 Objective HEENT: No pale conjunctivae. No icterus. NECK: No lymphadenopathy. CHEST: Clear. HEART: S1 and S2. ABDOMEN: Soft. SKIN: No rash. NEUROLOGIC: Awake and alert. reviewed reviewed Current Medications Medications (Trade) Dose Ordered Sig/Meagan Route PRN Reason Start Time Stop Time Status Last Admin Dose Admin Acetaminophen (Tylenol) 650 mg Q4H PRN ORAL Fever 07/06/17 20:00 08/03/17 19:59 Acetaminophen/ Hydrocodone Bitart ([place] 5/325) 1 tab Q6H PRN ORAL For Pain Scale 4-10 07/06/17 20:00 07/13/17 19:59 07/08/17 04:07 Albuterol/ Ipratropium (DuoNeb 0.5-3(2.5)mg/3ml) 3 ml Q4H PRN HHN Shortness of Breath 07/06/17 20:00 07/09/17 19:59 Amlodipine Besylate (Norvasc) 5 mg Q12HR ORAL 07/06/17 21:00 08/03/17 20:59 07/08/17 08:18 Aspirin (ASA) 325 mg DAILY ORAL 07/07/17 09:00 08/04/17 13:59 07/08/17 08:18 Carvedilol (Coreg) 6.25 mg EVERY 12 HOURS ORAL 07/06/17 21:00 08/03/17 20:59 07/07/17 20:48 Clonidine HCl (Catapres) 0.1 mg Q6H PRN ORAL sbp more than 160 07/06/17 20:00 08/03/17 19:59 Dextrose (Dextrose 50%) STAT PRN IV Hypoglycemia 07/06/17 20:00 08/05/17 19:59 Docusate Sodium (Colace) 100 mg TWICE A DAY ORAL 07/07/17 09:00 08/04/17 13:29 07/08/17 08:17 Heparin Sodium (Porcine) (Heparin 5000 units/ml) 5,000 units EVERY 12 HOURS SUBQ 07/06/17 21:00 08/03/17 20:59 07/08/17 08:19 Levofloxacin 100 ml @ 100 mls/hr Q48H IVPB 07/07/17 01:00 07/12/17 00:59 07/07/17 00:46 Lisinopril (Prinivil) 40 mg DAILY ORAL 07/07/17 09:00 08/04/17 08:59 07/08/17 08:18 Nitroglycerin (Ntg) 0.4 mg Q5MIN X 3 DOSES PRN SL Prn Chest Pain 07/06/17 19:45 08/05/17 19:44 Ondansetron HCl (Zofran) 4 mg Q6H PRN IVP Nausea & Vomiting 07/06/17 20:00 08/03/17 19:59 Pantoprazole (Protonix) 40 mg ACBREAKFAST ORAL 07/07/17 06:30 08/04/17 13:29 07/08/17 06:41 Polyethylene Glycol (Miralax) 17 gm DAILYPRN PRN ORAL Constipation 07/06/17 20:00 08/05/17 19:59 Temazepam (Restoril) 15 mg HSPRN PRN ORAL Insomnia 07/06/17 20:00 07/13/17 19:59 Bernadine Mandel M.D. Jul 08, 2017 11:03
--- NOTE | 2017-07-08 11:56 | Cardiology Progress Note ---
Assessment/Plan Assessment/Plan chest pain htn esrd on HD perfusion iamgign beign perfomred to dy to dc home if no sig reversibel defect will need to disduss if has sig reversibel defect Subjective Cardiovascular: Denies: chest pain - resolved , lightheadedness, palpitations Respiratory: Denies: shortness of breath Gastrointestinal/Abdominal: Denies: abdomen distended Genitourinary: Denies: no symptoms Objective Last 24 Hour Vital Signs Date Time Temp Pulse Resp B/P (MAP) Pulse Ox O2 Delivery O2 Flow Rate FiO2 07/08/17 08:18 116/90 07/08/17 08:18 79 116/90 07/08/17 08:00 97.0 79 18 116/90 95 Nasal Cannula 2.0 07/08/17 08:00 81 07/08/17 07:39 Room Air 07/08/17 07:38 94 Room Air 21 07/08/17 07:38 82 20 Room Air 21 07/08/17 04:05 98.4 71 20 138/65 97 Nasal Cannula 2.0 07/08/17 04:00 69 07/08/17 00:17 98.0 79 20 135/75 99 Nasal Cannula 2.0 07/08/17 00:00 66 07/07/17 20:48 70 144/85 07/07/17 20:48 70 144/85 07/07/17 20:26 98.8 70 20 144/85 97 Nasal Cannula 2.0 07/07/17 20:08 95 Room Air 21 07/07/17 20:07 Room Air 07/07/17 20:06 63 20 Room Air 21 07/07/17 20:00 72 07/07/17 16:00 63 07/07/17 15:31 97.9 66 20 147/76 97 Room Air 07/07/17 12:37 Nasal Cannula 3.0 07/07/17 12:36 97.0 72 20 113/58 95 Nasal Cannula 3.0 07/07/17 12:00 59 General Appearance: alert Neck: supple Cardiovascular: normal rate, regular rhythm Respiratory/Chest: lungs clear, normal breath sounds Abdomen: normal bowel sounds, non tender, soft Extremities: no swelling LUIZA COOK Jul 08, 2017 11:56
[2017-07-08] MEDS ORDERED: Lexiscan 0.4mg/5ml syringe IV ONE (12:00)
--- NOTE | 2017-07-08 12:29 | Pulmonology Progress Note ---
Assessment/Plan Problems: (1) Respiratory failure, acute (2) Acute coronary syndrome (3) ESRD (end stage renal disease) (4) Leukocytosis Assessment/Plan feeling better f/u wbc abx as per ID, vanco d/leyda, on Levofloxacin check labs echo reviewed tropoin still elevated cardio consult, stress test in prcess dc home if stress test negative Subjective ROS Limited/Unobtainable: No Constitutional: Reports: no symptoms HEENT: Repors: no symptoms Respiratory: Reports: no symptoms Allergies: Coded Allergies: No Known Allergies (Unverified , 07/04/17) Objective Last 24 Hour Vital Signs Date Time Temp Pulse Resp B/P (MAP) Pulse Ox O2 Delivery O2 Flow Rate FiO2 07/08/17 11:56 97.8 78 18 125/76 95 Nasal Cannula 2.0 07/08/17 08:18 116/90 07/08/17 08:18 79 116/90 07/08/17 08:00 97.0 79 18 116/90 95 Nasal Cannula 2.0 07/08/17 08:00 81 07/08/17 07:39 Room Air 07/08/17 07:38 94 Room Air 21 07/08/17 07:38 82 20 Room Air 21 07/08/17 04:05 98.4 71 20 138/65 97 Nasal Cannula 2.0 07/08/17 04:00 69 07/08/17 00:17 98.0 79 20 135/75 99 Nasal Cannula 2.0 07/08/17 00:00 66 07/07/17 20:48 70 144/85 07/07/17 20:48 70 144/85 07/07/17 20:26 98.8 70 20 144/85 97 Nasal Cannula 2.0 07/07/17 20:08 95 Room Air 21 07/07/17 20:07 Room Air 07/07/17 20:06 63 20 Room Air 21 07/07/17 20:00 72 07/07/17 16:00 63 07/07/17 15:31 97.9 66 20 147/76 97 Room Air 07/07/17 12:37 Nasal Cannula 3.0 07/07/17 12:36 97.0 72 20 113/58 95 Nasal Cannula 3.0 General Appearance: WD/WN HEENT: normocephalic, anicteric Respiratory/Chest: chest wall non-tender, lungs clear Cardiovascular: normal peripheral pulses, normal rate Abdomen: normal bowel sounds, soft, non tender, no organomegaly Current Medications Medications (Trade) Dose Ordered Sig/Meagan Route PRN Reason Start Time Stop Time Status Last Admin Dose Admin Acetaminophen (Tylenol) 650 mg Q4H PRN ORAL Fever 07/06/17 20:00 08/03/17 19:59 Acetaminophen/ Hydrocodone Bitart ([place] 5/325) 1 tab Q6H PRN ORAL For Pain Scale 4-10 07/06/17 20:00 07/13/17 19:59 07/08/17 04:07 Albuterol/ Ipratropium (DuoNeb 0.5-3(2.5)mg/3ml) 3 ml Q4H PRN HHN Shortness of Breath 07/06/17 20:00 07/09/17 19:59 Amlodipine Besylate (Norvasc) 5 mg Q12HR ORAL 07/06/17 21:00 08/03/17 20:59 07/08/17 08:18 Aspirin (ASA) 325 mg DAILY ORAL 07/07/17 09:00 08/04/17 13:59 07/08/17 08:18 Carvedilol (Coreg) 6.25 mg EVERY 12 HOURS ORAL 07/06/17 21:00 08/03/17 20:59 07/07/17 20:48 Clonidine HCl (Catapres) 0.1 mg Q6H PRN ORAL sbp more than 160 07/06/17 20:00 08/03/17 19:59 Dextrose (Dextrose 50%) STAT PRN IV Hypoglycemia 07/06/17 20:00 08/05/17 19:59 Docusate Sodium (Colace) 100 mg TWICE A DAY ORAL 07/07/17 09:00 08/04/17 13:29 07/08/17 08:17 Heparin Sodium (Porcine) (Heparin 5000 units/ml) 5,000 units EVERY 12 HOURS SUBQ 07/06/17 21:00 08/03/17 20:59 07/08/17 08:19 Levofloxacin 100 ml @ 100 mls/hr Q48H IVPB 07/07/17 01:00 07/12/17 00:59 07/07/17 00:46 Lisinopril (Prinivil) 40 mg DAILY ORAL 07/07/17 09:00 08/04/17 08:59 07/08/17 08:18 Nitroglycerin (Ntg) 0.4 mg Q5MIN X 3 DOSES PRN SL Prn Chest Pain 07/06/17 19:45 08/05/17 19:44 Ondansetron HCl (Zofran) 4 mg Q6H PRN IVP Nausea & Vomiting 07/06/17 20:00 08/03/17 19:59 Pantoprazole (Protonix) 40 mg ACBREAKFAST ORAL 07/07/17 06:30 08/04/17 13:29 07/08/17 06:41 Polyethylene Glycol (Miralax) 17 gm DAILYPRN PRN ORAL Constipation 07/06/17 20:00 08/05/17 19:59 Temazepam (Restoril) 15 mg HSPRN PRN ORAL Insomnia 07/06/17 20:00 07/13/17 19:59 TO TINSLEY Jul 08, 2017 12:29
--- NOTE | 2017-07-08 13:24 | General Progress Note ---
Assessment/Plan Status: stable Assessment/Plan Primary Impression: Acute coronary syndrome Additional Impressions: CHF exacerbation ESRD (end stage renal disease) Hypoxia Possible sepsis ( line ) or pneumonia Plan: HD and UF done 07/04 repeat 07/07- next 07/09 if in house keep BP in check start ASA Stool softners Gastric support per cardiology ? DC planning? Global left ventricular hypokinesis. Left ventricular ejection fraction estimated to be 50 %. Mild left ventricular hypertrophy. Subjective ROS Limited/Unobtainable: No Constitutional: Reports: malaise Allergies: Coded Allergies: No Known Allergies (Unverified , 07/04/17) Objective Last 24 Hour Vital Signs Date Time Temp Pulse Resp B/P (MAP) Pulse Ox O2 Delivery O2 Flow Rate FiO2 07/08/17 11:56 97.8 78 18 125/76 95 Nasal Cannula 2.0 07/08/17 08:18 116/90 07/08/17 08:18 79 116/90 07/08/17 08:00 97.0 79 18 116/90 95 Nasal Cannula 2.0 07/08/17 08:00 81 07/08/17 07:39 Room Air 07/08/17 07:38 94 Room Air 21 07/08/17 07:38 82 20 Room Air 21 07/08/17 04:05 98.4 71 20 138/65 97 Nasal Cannula 2.0 07/08/17 04:00 69 07/08/17 00:17 98.0 79 20 135/75 99 Nasal Cannula 2.0 07/08/17 00:00 66 07/07/17 20:48 70 144/85 07/07/17 20:48 70 144/85 07/07/17 20:26 98.8 70 20 144/85 97 Nasal Cannula 2.0 07/07/17 20:08 95 Room Air 21 07/07/17 20:07 Room Air 07/07/17 20:06 63 20 Room Air 21 07/07/17 20:00 72 07/07/17 16:00 63 07/07/17 15:31 97.9 66 20 147/76 97 Room Air Height (Feet): 5 Height (Inches): 3.00 Weight (Pounds): 200 General Appearance: no apparent distress Respiratory/Chest: decreased breath sounds Abdomen: soft Objective other PE not changed FREDDIE GARCIA Jul 08, 2017 13:24
[2017-07-08 14:06] LABS: BASOPHILS % (AUTO) 1.6 % (0.0-2.0); EOSINOPHILS % (AUTO) 6.5 % (0.0-3.0); LYMPHOCYTES % (AUTO) 10.6 % (20.0-45.0); MEAN CORPUSCULAR HEMOGLOBIN 28.5 PG (27.0-31.0); MEAN CORPUSCULAR VOLUME 95 FL (80-99); MONOCYTES % (AUTO) 7.8 % (1.0-10.0); NEUTROPHILS % (AUTO) 73.5 % (45.0-75.0); PLATELET COUNT 322 K/UL (150-450); RED BLOOD COUNT 3.38 M/UL (4.70-6.10); RED CELL DISTRIBUTION WIDTH 14.5 % (11.6-14.8); WHITE BLOOD COUNT 10.7 K/UL (4.8-10.8)
[2017-07-08] MEDS ORDERED: Tubing IV Secondary IV ONE (14:56)
[2017-07-08] MEDS ORDERED: NS 500ML IV ONE (14:56)
[2017-07-08] MEDS ORDERED: Tubing Blood Filter IV ONE (14:56)
[2017-07-08] MEDS ORDERED: D5NS 1000ml IV ONE (14:56)
[2017-07-08] MEDS ORDERED: NS 275ml ONE (14:56)
--- NOTE | 2017-07-08 16:12 | Diagnostic Imaging Report ---
Indications: Chest pain Technique: Single day single isotope protocol utilized. Initially, resting images obtained using IV administration 10.3 millicuries 99M technetium Myoview. Subsequently, patient underwent lexiscan stress testing. See cardiology report for details. During DEXA scan infusion, IV administration 32.8 mCi 99 M technetium Myoview. SPECT and planar images obtained. SPECT images gated to 8 phases of the cardiac cycle were also obtained, and reformatted into cine images for evaluation of ejection fraction. Comparison: None Findings: Per cardiology report, patient experienced flushing. Per cardiology report, resting EKG demonstrates T-wave inversion in leads 2, 3, aVF, V6.. During infusion, patient developed T-wave inversion in V5. Imaging demonstrates decreased anterolateral perfusion, particularly near the base, which is unchanged on the poststress images. The left ventricle is dilated. Calculated post stress ejection fraction 43%. No focal wall motion abnormality demonstrated. Impression: Nonischemic clinical response to pharmacologic stress, per cardiology report Nondiagnostic electrocardiographic response to pharmacologic stress, per cardiology report Evidence of inferolateral infarct. No evidence of ischemia, at level of stress achieved Calculated post stress ejection fraction 43%
[2017-07-09 04:00] VITALS: BP 101/67
[2017-07-09] MEDS: Norco 5mg/325mg tab ORAL PRN ×2 (06:10→17:19)
[2017-07-09 07:12] LABS: BASOPHILS % (AUTO) 0.8 % (0.0-2.0); EOSINOPHILS % (AUTO) 8.6 % (0.0-3.0); LYMPHOCYTES % (AUTO) 18.1 % (20.0-45.0); MEAN CORPUSCULAR HEMOGLOBIN 28.8 PG (27.0-31.0); MEAN CORPUSCULAR HGB CONC 30.7 G/DL (32.0-36.0); MEAN CORPUSCULAR VOLUME 94 FL (80-99); MEAN PLATELET VOLUME 5.1 FL (6.5-10.1); MONOCYTES % (AUTO) 7.8 % (1.0-10.0); NEUTROPHILS % (AUTO) 64.7 % (45.0-75.0); PLATELET COUNT 349 K/UL (150-450); RED BLOOD COUNT 2.99 M/UL (4.70-6.10); RED CELL DISTRIBUTION WIDTH 14.1 % (11.6-14.8); WHITE BLOOD COUNT 10.3 K/UL (4.8-10.8)
[2017-07-09 07:14] LABS: ANION GAP 13 mmol/L (5-15); CALCIUM 9.8 MG/DL (8.5-10.1); CARBON DIOXIDE 24 MMOL/L (21-32); CHLORIDE 99 MMOL/L (98-107); GLOMERULAR FILTRATION RATE 9.9 mL/min (>60); POTASSIUM 4.9 MMOL/L (3.5-5.1); SODIUM 136 MMOL/L (136-145)
[2017-07-09 08:05] VITALS: BP 143/65
--- NOTE | 2017-07-09 08:58 | Diagnostic Imaging Report ---
APPROVED REPORT CPT Code: 49911 Present Symptoms Comments: R/O DVT BILATERAL: Imaging reveals a patent deep venous system bilaterally. There is no evidence of thrombus within the femoral, popliteal or tibial segments. The greater saphenous veins are also within normal limits. Doppler indicates normal spontaneous flow within these segments.
[2017-07-09] MEDS: Carvedilol 6.25mg Tab ORAL SCH (09:00)
[2017-07-09] MEDS: Lisinopril 20mg tab ORAL SCH (09:25)
[2017-07-09] MEDS: Docusate 100mg cap ORAL SCH ×2 (09:25→17:19)
[2017-07-09] MEDS: Heparin 5000 units/ml inj SUBQ SCH (09:27)
--- NOTE | 2017-07-09 09:37 | General Progress Note ---
Assessment/Plan Status: stable Assessment/Plan Primary Impression: Acute coronary syndrome Additional Impressions: CHF exacerbation ESRD (end stage renal disease) Hypoxia Possible sepsis ( line ) or pneumonia Plan: HD today 07/09 keep BP in check start ASA Stool softners Gastric support per cardiology ? DC planning? Global left ventricular hypokinesis. Left ventricular ejection fraction estimated to be 50 %. Mild left ventricular hypertrophy. Subjective ROS Limited/Unobtainable: No Allergies: Coded Allergies: No Known Allergies (Unverified , 07/04/17) Objective Last 24 Hour Vital Signs Date Time Temp Pulse Resp B/P (MAP) Pulse Ox O2 Delivery O2 Flow Rate FiO2 07/09/17 09:25 143/65 07/09/17 09:25 73 143/65 07/09/17 08:27 Nasal Cannula 2.0 28 07/09/17 08:27 95 Nasal Cannula 2.0 28 07/09/17 08:26 73 20 Nasal Cannula 2.0 28 07/09/17 08:05 98.2 69 20 143/65 98 Nasal Cannula 2.0 07/09/17 04:00 74 07/09/17 04:00 98.0 82 18 101/67 98 Nasal Cannula 2.0 21 07/09/17 00:00 74 07/08/17 23:50 98.0 78 20 147/65 97 Nasal Cannula 2.0 07/08/17 21:06 63 153/71 07/08/17 21:06 63 153/71 07/08/17 20:00 97.7 63 18 153/71 96 Nasal Cannula 2.0 21 07/08/17 20:00 69 07/08/17 19:30 95 Room Air 21 07/08/17 19:30 Room Air 21 07/08/17 19:30 70 20 Room Air 21 07/08/17 16:00 98.0 69 18 140/72 96 Nasal Cannula 2.0 07/08/17 16:00 71 07/08/17 12:00 75 07/08/17 11:56 97.8 78 18 125/76 95 Nasal Cannula 2.0 Intake and Output 07/09/17 07/10/17 19:00 07:00 Intake Total 150 ml Output Total 400 ml Balance -250 ml Intake Oral 150 ml Output Urine Total 400 ml Laboratory Tests 07/08/17 14:00: White Blood Count 10.7, Red Blood Count 3.38L, Hemoglobin 9.6L, Hematocrit 32.2L , Mean Corpuscular Volume 95, Mean Corpuscular Hemoglobin 28.5, Mean Corpuscular Hemoglobin Concent 30.0L, Red Cell Distribution Width 14.5, Platelet Count 322, Mean Platelet Volume 5.0L, Neutrophils (%) (Auto) 73.5, Lymphocytes (%) (Auto) 10.6L, Monocytes (%) (Auto) 7.8, Eosinophils (%) (Auto) 6.5H, Basophils (%) (Auto) 1.6 07/09/17 04:45: White Blood Count 10.3, Red Blood Count 2.99L, Hemoglobin 8.6L, Hematocrit 28.1L , Mean Corpuscular Volume 94, Mean Corpuscular Hemoglobin 28.8, Mean Corpuscular Hemoglobin Concent 30.7L, Red Cell Distribution Width 14.1, Platelet Count 349, Mean Platelet Volume 5.1L, Neutrophils (%) (Auto) 64.7, Lymphocytes (%) (Auto) 18.1L, Monocytes (%) (Auto) 7.8, Eosinophils (%) (Auto) 8.6H, Basophils (%) (Auto) 0.8, Sodium Level 136, Potassium Level 4.9, Chloride Level 99, Carbon Dioxide Level 24, Anion Gap 13, Blood Urea Nitrogen 74H, Creatinine 7.0H, Estimat Glomerular Filtration Rate 9.9, Glucose Level 92, Calcium Level 9.8 Height (Feet): 5 Height (Inches): 3.00 Weight (Pounds): 201 General Appearance: no apparent distress Objective other PE not changed FREDDIE GARCIA Jul 09, 2017 09:37
[2017-07-09 11:34] VITALS: BP 142/67
--- NOTE | 2017-07-09 11:58 | Pulmonology Progress Note ---
Assessment/Plan Problems: (1) Respiratory failure, acute (2) Acute coronary syndrome (3) ESRD (end stage renal disease) (4) Leukocytosis Assessment/Plan feeling better f/u wbc abx as per ID, vanco d/leyda, on Levofloxacin check labs echo reviewed tropoin still elevated cardio consult, stress test done dc home Subjective ROS Limited/Unobtainable: No Constitutional: Reports: no symptoms HEENT: Repors: no symptoms Respiratory: Reports: no symptoms Allergies: Coded Allergies: No Known Allergies (Unverified , 07/04/17) Objective Last 24 Hour Vital Signs Date Time Temp Pulse Resp B/P (MAP) Pulse Ox O2 Delivery O2 Flow Rate FiO2 07/09/17 11:34 96.8 63 20 142/67 97 Nasal Cannula 2.0 07/09/17 09:25 143/65 07/09/17 09:25 73 143/65 07/09/17 08:27 Nasal Cannula 2.0 28 07/09/17 08:27 95 Nasal Cannula 2.0 28 07/09/17 08:26 73 20 Nasal Cannula 2.0 28 07/09/17 08:05 98.2 69 20 143/65 98 Nasal Cannula 2.0 07/09/17 08:00 58 07/09/17 04:00 74 07/09/17 04:00 98.0 82 18 101/67 98 Nasal Cannula 2.0 21 07/09/17 00:00 74 07/08/17 23:50 98.0 78 20 147/65 97 Nasal Cannula 2.0 07/08/17 21:06 63 153/71 07/08/17 21:06 63 153/71 07/08/17 20:00 97.7 63 18 153/71 96 Nasal Cannula 2.0 21 07/08/17 20:00 69 07/08/17 19:30 95 Room Air 21 07/08/17 19:30 Room Air 21 07/08/17 19:30 70 20 Room Air 21 07/08/17 16:00 98.0 69 18 140/72 96 Nasal Cannula 2.0 07/08/17 16:00 71 07/08/17 12:00 75 Intake and Output 07/09/17 07/10/17 19:00 07:00 Intake Total 150 ml Output Total 600 ml Balance -450 ml Intake Oral 150 ml Output Urine Total 600 ml General Appearance: WD/WN HEENT: normocephalic, atraumatic Respiratory/Chest: chest wall non-tender, lungs clear Cardiovascular: normal peripheral pulses, normal rate Abdomen: normal bowel sounds, soft, non tender Genitourinary: normal external genitalia Extremities: no cyanosis Skin: no rash Neurologic/Psychiatric: outside sales consultant II-XII grossly normal Laboratory Tests 07/08/17 14:00: White Blood Count 10.7, Red Blood Count 3.38L, Hemoglobin 9.6L, Hematocrit 32.2L , Mean Corpuscular Volume 95, Mean Corpuscular Hemoglobin 28.5, Mean Corpuscular Hemoglobin Concent 30.0L, Red Cell Distribution Width 14.5, Platelet Count 322, Mean Platelet Volume 5.0L, Neutrophils (%) (Auto) 73.5, Lymphocytes (%) (Auto) 10.6L, Monocytes (%) (Auto) 7.8, Eosinophils (%) (Auto) 6.5H, Basophils (%) (Auto) 1.6 07/09/17 04:45: White Blood Count 10.3, Red Blood Count 2.99L, Hemoglobin 8.6L, Hematocrit 28.1L , Mean Corpuscular Volume 94, Mean Corpuscular Hemoglobin 28.8, Mean Corpuscular Hemoglobin Concent 30.7L, Red Cell Distribution Width 14.1, Platelet Count 349, Mean Platelet Volume 5.1L, Neutrophils (%) (Auto) 64.7, Lymphocytes (%) (Auto) 18.1L, Monocytes (%) (Auto) 7.8, Eosinophils (%) (Auto) 8.6H, Basophils (%) (Auto) 0.8, Sodium Level 136, Potassium Level 4.9, Chloride Level 99, Carbon Dioxide Level 24, Anion Gap 13, Blood Urea Nitrogen 74H, Creatinine 7.0H, Estimat Glomerular Filtration Rate 9.9, Glucose Level 92, Calcium Level 9.8 Current Medications Medications (Trade) Dose Ordered Sig/Meagan Route PRN Reason Start Time Stop Time Status Last Admin Dose Admin Acetaminophen (Tylenol) 650 mg Q4H PRN ORAL Fever 07/06/17 20:00 08/03/17 19:59 Acetaminophen/ Hydrocodone Bitart ([place] 5/325) 1 tab Q6H PRN ORAL For Pain Scale 4-10 07/06/17 20:00 07/13/17 19:59 07/09/17 06:10 Albuterol/ Ipratropium (DuoNeb 0.5-3(2.5)mg/3ml) 3 ml Q4H PRN HHN Shortness of Breath 07/06/17 20:00 07/09/17 19:59 Amlodipine Besylate (Norvasc) 5 mg Q12HR ORAL 07/06/17 21:00 08/03/17 20:59 07/09/17 09:25 Aspirin (ASA) 325 mg DAILY ORAL 07/07/17 09:00 08/04/17 13:59 07/09/17 09:25 Carvedilol (Coreg) 6.25 mg EVERY 12 HOURS ORAL 07/06/17 21:00 08/03/17 20:59 07/08/17 21:06 Clonidine HCl (Catapres) 0.1 mg Q6H PRN ORAL sbp more than 160 07/06/17 20:00 08/03/17 19:59 Dextrose (Dextrose 50%) STAT PRN IV Hypoglycemia 07/06/17 20:00 08/05/17 19:59 Docusate Sodium (Colace) 100 mg TWICE A DAY ORAL 07/07/17 09:00 08/04/17 13:29 07/09/17 09:25 Heparin Sodium (Porcine) (Heparin 5000 units/ml) 5,000 units EVERY 12 HOURS SUBQ 07/06/17 21:00 08/03/17 20:59 07/09/17 09:27 Levofloxacin 100 ml @ 100 mls/hr Q48H IVPB 07/07/17 01:00 07/12/17 00:59 07/09/17 00:59 Lisinopril (Prinivil) 40 mg DAILY ORAL 07/07/17 09:00 08/04/17 08:59 07/09/17 09:25 Nitroglycerin (Ntg) 0.4 mg Q5MIN X 3 DOSES PRN SL Prn Chest Pain 07/06/17 19:45 08/05/17 19:44 Ondansetron HCl (Zofran) 4 mg Q6H PRN IVP Nausea & Vomiting 07/06/17 20:00 08/03/17 19:59 Pantoprazole (Protonix) 40 mg ACBREAKFAST ORAL 07/07/17 06:30 08/04/17 13:29 07/09/17 06:10 Polyethylene Glycol (Miralax) 17 gm DAILYPRN PRN ORAL Constipation 07/06/17 20:00 08/05/17 19:59 Temazepam (Restoril) 15 mg HSPRN PRN ORAL Insomnia 07/06/17 20:00 07/13/17 19:59 TO TINSLEY Jul 09, 2017 11:58
--- NOTE | 2017-07-09 14:26 | Infectious Diseases Prog Note ---
Assessment/Plan Assessment/Plan ASSESSMENT: Pneumonia -CXR Bilateral left greater than right pleural effusions. Retrocardiac consolidation, mild generalized interstitial congestion -Sp cx normal gerard -Bcx NTD Cardiomegaly Pleural effusion Leukocytosis, resolved -u/a neg, ucx neg ACS ESRD on HD Diastolic CHF PLAN: -Continue Levaquin #5/5-7 -s/p 3d IV Vancomycin 07/07 -repeat CXR 2v tomorrow morning -f/u cx -Monitor CBC/BMP, temperatures -aspiration precautions Discussed with RN. Subjective Allergies: Coded Allergies: No Known Allergies (Unverified , 07/04/17) Subjective afebrile no cough breathing comfortably Objective Vital Signs Last 24 Hour Vital Signs Date Time Temp Pulse Resp B/P (MAP) Pulse Ox O2 Delivery O2 Flow Rate FiO2 07/09/17 11:34 96.8 63 20 142/67 97 Nasal Cannula 2.0 07/09/17 09:25 143/65 07/09/17 09:25 73 143/65 07/09/17 08:27 Nasal Cannula 2.0 28 07/09/17 08:27 95 Nasal Cannula 2.0 28 07/09/17 08:26 73 20 Nasal Cannula 2.0 28 07/09/17 08:05 98.2 69 20 143/65 98 Nasal Cannula 2.0 07/09/17 08:00 58 07/09/17 04:00 74 07/09/17 04:00 98.0 82 18 101/67 98 Nasal Cannula 2.0 21 07/09/17 00:00 74 07/08/17 23:50 98.0 78 20 147/65 97 Nasal Cannula 2.0 07/08/17 21:06 63 153/71 07/08/17 21:06 63 153/71 07/08/17 20:00 97.7 63 18 153/71 96 Nasal Cannula 2.0 21 07/08/17 20:00 69 07/08/17 19:30 95 Room Air 21 07/08/17 19:30 Room Air 21 07/08/17 19:30 70 20 Room Air 21 07/08/17 16:00 98.0 69 18 140/72 96 Nasal Cannula 2.0 07/08/17 16:00 71 Height (Feet): 5 Height (Inches): 3.00 Weight (Pounds): 201 Objective HEENT: No pale conjunctivae. No icterus. NECK: No lymphadenopathy. CHEST: Clear. HEART: S1 and S2. ABDOMEN: Soft. SKIN: No rash. NEUROLOGIC: Awake and alert. reviewed Laboratory Tests Test 07/09/17 04:45 White Blood Count 10.3 K/UL (4.8-10.8) Red Blood Count 2.99 M/UL (4.70-6.10) L Hemoglobin 8.6 G/DL (14.2-18.0) L Hematocrit 28.1 % (42.0-52.0) L Mean Corpuscular Volume 94 FL (80-99) Mean Corpuscular Hemoglobin 28.8 PG (27.0-31.0) Mean Corpuscular Hemoglobin Concent 30.7 G/DL (32.0-36.0) L Red Cell Distribution Width 14.1 % (11.6-14.8) Platelet Count 349 K/UL (150-450) Mean Platelet Volume 5.1 FL (6.5-10.1) L Neutrophils (%) (Auto) 64.7 % (45.0-75.0) Lymphocytes (%) (Auto) 18.1 % (20.0-45.0) L Monocytes (%) (Auto) 7.8 % (1.0-10.0) Eosinophils (%) (Auto) 8.6 % (0.0-3.0) H Basophils (%) (Auto) 0.8 % (0.0-2.0) Sodium Level 136 MMOL/L (136-145) Potassium Level 4.9 MMOL/L (3.5-5.1) Chloride Level 99 MMOL/L (98-107) Carbon Dioxide Level 24 MMOL/L (21-32) Anion Gap 13 mmol/L (5-15) Blood Urea Nitrogen 74 mg/dL (7-18) H Creatinine 7.0 MG/DL (0.55-1.30) H Estimat Glomerular Filtration Rate 9.9 mL/min (>60) Glucose Level 92 MG/DL (74-106) Calcium Level 9.8 MG/DL (8.5-10.1) Current Medications Medications (Trade) Dose Ordered Sig/Meagan Route PRN Reason Start Time Stop Time Status Last Admin Dose Admin Acetaminophen (Tylenol) 650 mg Q4H PRN ORAL Fever 07/06/17 20:00 08/03/17 19:59 Acetaminophen/ Hydrocodone Bitart (Frazee 5/325) 1 tab Q6H PRN ORAL For Pain Scale 4-10 07/06/17 20:00 07/13/17 19:59 07/09/17 06:10 Albuterol/ Ipratropium (DuoNeb 0.5-3(2.5)mg/3ml) 3 ml Q4H PRN HHN Shortness of Breath 07/06/17 20:00 07/09/17 19:59 Amlodipine Besylate (Norvasc) 5 mg Q12HR ORAL 07/06/17 21:00 08/03/17 20:59 07/09/17 09:25 Aspirin (ASA) 325 mg DAILY ORAL 07/07/17 09:00 08/04/17 13:59 07/09/17 09:25 Carvedilol (Coreg) 6.25 mg EVERY 12 HOURS ORAL 07/06/17 21:00 08/03/17 20:59 07/08/17 21:06 Clonidine HCl (Catapres) 0.1 mg Q6H PRN ORAL sbp more than 160 07/06/17 20:00 08/03/17 19:59 Dextrose (Dextrose 50%) STAT PRN IV Hypoglycemia 07/06/17 20:00 08/05/17 19:59 Docusate Sodium (Colace) 100 mg TWICE A DAY ORAL 07/07/17 09:00 08/04/17 13:29 07/09/17 09:25 Heparin Sodium (Porcine) (Heparin 5000 units/ml) 5,000 units EVERY 12 HOURS SUBQ 07/06/17 21:00 08/03/17 20:59 07/09/17 09:27 Levofloxacin 100 ml @ 100 mls/hr Q48H IVPB 07/07/17 01:00 07/12/17 00:59 07/09/17 00:59 Lisinopril (Prinivil) 40 mg DAILY ORAL 07/07/17 09:00 08/04/17 08:59 07/09/17 09:25 Nitroglycerin (Ntg) 0.4 mg Q5MIN X 3 DOSES PRN SL Prn Chest Pain 07/06/17 19:45 08/05/17 19:44 Ondansetron HCl (Zofran) 4 mg Q6H PRN IVP Nausea & Vomiting 07/06/17 20:00 08/03/17 19:59 Pantoprazole (Protonix) 40 mg ACBREAKFAST ORAL 07/07/17 06:30 08/04/17 13:29 07/09/17 06:10 Polyethylene Glycol (Miralax) 17 gm DAILYPRN PRN ORAL Constipation 07/06/17 20:00 08/05/17 19:59 Temazepam (Restoril) 15 mg HSPRN PRN ORAL Insomnia 07/06/17 20:00 07/13/17 19:59 Bernadine Mandel M.D. Jul 09, 2017 14:26
[2017-07-09 15:24] VITALS: BP 122/60
--- NOTE | 2017-07-11 12:12 | Discharge Summary ---
Discharge Summary Hospital Course Date of Admission Jul 04, 2017 at 08:09 Date of Discharge Jul 09, 2017 at 18:11 Admitting Diagnosis CONGESTIVE HEART FAILURE, ACUTE CORONARY SYNDROME SUNITA Oliveira is a 56 year old male who was admitted on Jul 04, 2017 at 08:09 for Congestive Heart Failure,Acute Coronary Syndrome Hospital Course [id number] Discharge Discharge Disposition Patient was discharged to Home (01) Discharge Diagnoses: Misti Reddy NP Jul 11, 2017 12:12
--- NOTE | 2017-07-12 03:00 | Discharge Summary 2 SIG ---
DATE OF ADMISSION: 07/04/2017 DATE OF DISCHARGE: 07/09/2017 CONSULTANTS: 1. Basim Marie M.D. 2. Richar Prado M.D. 3. Mir James M.D. BRIEF HOSPITAL COURSE: The patient is a 56-year-old male with history of hypertension, CHF, and end-stage renal disease, on hemodialysis, was brought in by paramedics for complaints of chest pain for one day. Chest pain started while the patient was at rest and while trying to sleep. Pain was localized to the right chest with no radiation to back or any other areas. It was described to be sharp in nature and gradual in onset. It lasted many hours through the night. On evaluation at ED, chest x-ray showed pulmonary vascular congestion. EKG was in normal sinus rhythm with markedly peaked T-waves and Q-waves noted in aVL and T-wave inversion in aVL. He was given aspirin. Blood work showed leukocytosis. WBC was 16. Initial troponin was elevated to 0.59 and BNP was 1451. He was admitted to [facility] and cardiac enzymes were monitored. He was started empirically on IV vancomycin and Levaquin and was placed on aspiration precaution. Urinalysis was negative. Urine culture was negative. He underwent cardiac evaluation. He has coronary risk factors including hypertension and previous tobacco use. Echocardiogram showed ejection fraction of 50% with mild ventricular hypertrophy. Venous duplex of lower extremity was negative for DVT. He underwent myocardial perfusion scan. Perfusion imaging was benign. He underwent inpatient hemodialysis. The patient as eventually discharged home. FINAL DIAGNOSES: 1. Acute congestive heart failure exacerbation, diastolic. 2. End-stage renal disease, on hemodialysis. 3. Hypertension. 4. Pneumonia. 5. Cardiomegaly. 6. Pleural effusion. 7. Acute coronary syndrome. DISPOSITION: The patient was discharged home. DISCHARGE MEDICATIONS: Refer to medication list. FOLLOWUP: The patient was advised to follow up with PMD in a week. Mario Patel M.D. I have been assigned to dictate discharge summary on this account and I was not involved in the patient's management. Misti Reddy N.P. DR: Darlene JOB#: [id number] CC: [email or web address]
== END 2017-07-09 18:11 | disposition home or self-care (01) | DRG 194 ==
LOC: EDBD 06:35 → EMR 06:56 → EDBEDREQ 07:56 → 2W 08:09 → EDBEDREQSVC 08:34 → EDBEDREQ 09:33 → 2W 10:40 → 2E 07-06 18:08
DX: I13.2 Hypertensive heart and chronic kidney disease with heart failure and with stage 5 chronic kidney disease, or end stage renal disease (principal); J96.01 Acute respiratory failure with hypoxia; N18.6 End stage renal disease; I24.9 Acute ischemic heart disease, unspecified; J18.9 Pneumonia, unspecified organism; I50.33 Acute on chronic diastolic (congestive) heart failure; Z99.2 Dependence on renal dialysis; Z79.82 Long term (current) use of aspirin; Z23 Encounter for immunization; Z87.891 Personal history of nicotine dependence
CPT/HCPCS: 36415; 71010; 78452; 80048; 80053; 80061; 80202; 81003; 82550; 82553; 82607; 82728; 82746; 82977; 83036; 83540; 83550; 83735; 83880; 84100; 84443; 84484; 84550; 85025; 85379; 86140; 87040; 87070; 87086; 87205; 90732; 93005; 93017; 93306; 93970; 94664; 94760; 99285; J2785